=== PATIENT | female | born 1930 | race Caucasian/White ===

== ENCOUNTER → 2017-07-03 | Outpatient (CLI) | payer MEDICARE, OTHER ==
[2016-07-05 10:59] VITALS: BP 113/71
[~2017-07-03] MED LIST: AMLO10TA2 PO; ASPI325T11 PO; ATOR10TA60 PO; CEFP200T PO; CHOL10003 PO; GARL5000 PO; HYDR-79 PO; LEVO112T4 PO; LEVO500T59 PO; LISI-338 PO; METF10002 PO; MULT-658 PO; NITR100C62 PO; ONDA8TAB12 PO
--- NOTE | 2017-07-03 15:47 | RAD ---
Thyroid ultrasound 07/03/2017 Clinical indication: Multinodular thyroid. Comparison: Thyroid ultrasound 07/03/2016. Findings: Right lobe of the thyroid measures 5.7 x 2.6 x 2.4 cm. There are numerous probably hyperechoic nodules throughout the right lobe of the thyroid, many of which are ill-defined. Left lobe of the thyroid measures 4.3 x 2.3 x 2.2 cm with numerous ill-defined probably hyperechoic nodules.. The dominant nodule involving the mid and inferior aspect of the left lobe measures 2.1 x 2.6 x 1.8 cm. There is enlargement of the isthmus with numerous nodules. Impression: 1. Multinodular goiter. 2. Dominant left lobe nodule measures up to 2.1 cm, indeterminate. Follow-up thyroid ultrasound in 9 months is recommended.
== END | disposition home or self-care (01) ==
LOC: US 13:30
PROVIDERS: ATTEND Physician Assistant Medical
DX: E04.2 Nontoxic multinodular goiter (principal); Z87.891 Personal history of nicotine dependence
CPT/HCPCS: 76536

== ENCOUNTER 2018-06-30 01:28 | Inpatient (IN) | payer MEDICARE, OTHER ==
[~2018-06-30] VITALS: Ht 167.6 cm; Wt 112.5 kg
[2018-06-30] VITALS (7 sets, daily range): BP systolic 119–162; BP diastolic 49–80
[~2018-06-30 01:28] MED LIST changes: -AMLO10TA2 PO; +AMLO10TA6 PO; +HYDR-1179 PO; -HYDR-79 PO; -METF10002 PO; +METF10007 PO
--- NOTE | 2018-06-30 01:39 | ED.ADGEN ---
Past History Past Medical History: Diabetes, High Cholesterol, Hypertension, Hypothyroid, Other Past Surgical History: Other Smoking: Quit Greater Than 1 Year Alcohol Use: None Drug Use: None Adult General Chief Complaint Chief Complaint "..I ve been short of breath.. and hypertension...this been coming on for a while.... but worse the last three days..." HPI HPI Patient is a 88 year old female who presents with above hx and complaints of dyspnea and hypertension. Patient normally follows with Dr. Vee. Has been compliant with her hypertensive meds. Patient denies any other changes in diet or exposures. No specific ill contacts. Patient states she's been having increased dyspnea for some time now but more pronounced last 3 days. Pt. recently followed with [facility] ED on [address] for same complaints. No changes in medications at that time. Review of Systems Review of Systems Constitutional: Denies fever or chills [] Eyes: Denies change in visual acuity, redness, or eye pain [] HENT: Denies nasal congestion or sore throat [] Respiratory: Complaints of shortness of breath [] Cardiovascular: No additional information not addressed in HPI [] GI: Denies abdominal pain, nausea, vomiting, bloody stools or diarrhea [] : Denies dysuria or hematuria [] Musculoskeletal: Denies back pain or joint pain [] Integument: Denies rash or skin lesions [] Neurologic: Denies headache, focal weakness or sensory changes [] Endocrine: Denies polyuria or polydipsia [] All other systems were reviewed and found to be within normal limits, except as documented in this note. Family History Family History Noncontributory Current Medications Current Medications Current Medications Medications (Trade) Dose Ordered Sig/Clair Start Time Stop Time Status Last Admin Dose Admin Aspirin (Children'S Aspirin) 324 mg 1X ONCE 06/30/18 02:00 06/30/18 02:01 DC 06/30/18 02:19 324 MG Sodium Chloride 1,000 ml @ 100 mls/hr Q10H 06/30/18 02:00 06/30/18 11:59 06/30/18 02:21 100 MLS/HR Allergies Allergies Allergies Coded Allergies Type Severity Reaction Last Updated Verified demeclocycline Allergy Mild "SWELLS UP" 10/31/13 Yes Physical Exam Physical Exam Constitutional: mild distress, non-toxic appearance. [] HENT: Normocephalic, atraumatic, bilateral external ears normal, oropharynx moist, no oral exudates, nose normal. [](Dog jaw bone) Eyes: PERRLA, EOMI, conjunctiva normal, no discharge. [] Neck: Normal range of motion, no tenderness, supple, no stridor. [] Cardiovascular:Heart rate regular rhythm, no murmur [] Lungs & Thorax: Bilateral breath sounds equal apex with scattered wheezes and few crackles basilar on auscultation [] Abdomen: Bowel sounds normal, soft, no tenderness, no masses, no pulsatile masses. Obese Skin: Warm, dry, no erythema, no rash. Poor turgor Back: No tenderness, no CVA tenderness. [] Extremities: No tenderness, no cyanosis, no clubbing, ROM intact, bilateral ankle edema. [] Neurologic: Alert and oriented X 3, normal motor function, normal sensory function, no focal deficits noted. []Hard of hearing Psychologic: Affect anxious, judgement normal, mood normal. [] Current Patient Data Vital Signs Vital Signs Date Time Temp Pulse Resp B/P (MAP) Pulse Ox O2 Delivery O2 Flow Rate FiO2 06/30/18 03:15 89 18 196/85 (122) 97 Room Air 06/30/18 01:30 98.0 Lab Results Laboratory Tests Test 06/30/18 02:15 06/30/18 03:10 White Blood Count 4.9 x10^3/uL (4.0-11.0) Red Blood Count 3.70 x10^6/uL (3.50-5.40) Hemoglobin 12.0 g/dL (12.0-15.5) Hematocrit 36.1 % (36.0-47.0) Mean Corpuscular Volume 98 fL (79-100) Mean Corpuscular Hemoglobin 33 pg (25-35) Mean Corpuscular Hemoglobin Concent 33 g/dL (31-37) Red Cell Distribution Width 14.4 % (11.5-14.5) Platelet Count 129 x10^3/uL (140-400) L Neutrophils (%) (Auto) 66 % (31-73) Lymphocytes (%) (Auto) 21 % (24-48) L Monocytes (%) (Auto) 9 % (0-9) Eosinophils (%) (Auto) 4 % (0-3) H Basophils (%) (Auto) 1 % (0-3) Neutrophils # (Auto) 3.3 x10^3uL (1.8-7.7) Lymphocytes # (Auto) 1.0 x10^3/uL (1.0-4.8) Monocytes # (Auto) 0.4 x10^3/uL (0.0-1.1) Eosinophils # (Auto) 0.2 x10^3/uL (0.0-0.7) Basophils # (Auto) 0.0 x10^3/uL (0.0-0.2) Prothrombin Time 10.2 SEC (9.4-11.4) Prothrombin Time INR 1.0 (0.9-1.1) PTT 25 SEC (23-33) D-Dimer (Shanice) 1.25 mg/L (0.00-0.50) H Sodium Level 141 mmol/L (136-145) Potassium Level 3.9 mmol/L (3.5-5.1) Chloride Level 106 mmol/L (98-107) Carbon Dioxide Level 28 mmol/L (21-32) Anion Gap 7 (6-14) Blood Urea Nitrogen 18 mg/dL (7-20) Creatinine 0.8 mg/dL (0.6-1.0) Estimated GFR (Cockcroft-Gault) 68.0 Glucose Level 113 mg/dL (70-99) H Calcium Level 9.5 mg/dL (8.5-10.1) Magnesium Level 1.4 mg/dL (1.8-2.4) L Total Bilirubin 0.4 mg/dL (0.2-1.0) Direct Bilirubin 0.1 mg/dL (0.0-0.2) Aspartate Amino Transferase (AST) 13 U/L (15-37) L Alanine Aminotransferase (ALT) 14 U/L (14-59) Alkaline Phosphatase 63 U/L (46-116) Creatine Kinase 30 U/L (26-192) Creatine Kinase MB (Mass) 0.8 ng/mL (0.0-3.6) Creatine Kinase MB Relative Index 2.7 % (0-4) Troponin I Quantitative < 0.017 ng/mL (0-0.055) PD-Txt-H-Type Natriuretic Peptide 76 pg/mL (0-449) Total Protein 7.0 g/dL (6.4-8.2) Albumin 3.3 g/dL (3.4-5.0) L Lipase 115 U/L (73-393) Urine Collection Type Unknown Urine Color Yellow Urine Clarity Clear Urine pH 5.5 Urine Specific Dresher 1.015 Urine Protein Trace (NEG-TRACE) Urine Glucose (UA) Neg mg/dL (NEG) Urine Ketones (Stick) Neg mg/dL (NEG) Urine Blood Small (NEG) Urine Nitrite Neg (NEG) Urine Bilirubin Neg (NEG) Urine Urobilinogen Dipstick 0.2 mg/dL (0.2 mg/dL) Urine Leukocyte Esterase Small (NEG) Urine RBC Occ /HPF (0-2) Urine WBC 5-10 /HPF (0-4) Urine Squamous Epithelial Cells Occ /LPF Urine Bacteria Few /HPF (0-FEW) EKG EKG I interpretation EKG shows a sinus rhythm at 86 bpm. Does have occasional PVC. There is some nonspecific ST changes but no findings of acute STEMI with contralateral changes.[] Radiology/Procedures Radiology/Procedures My interpretation of chest x-ray shows cardiomegaly. Blunting a left clifton- phrenic angle. Degenerative joint changes. Increased cephalization. Arthritis.[] \\CT pending at time of admit. Course & Med Decision Making Course & Med Decision Making Pertinent Labs and Imaging studies reviewed. (See chart for details) No current beds at [facility]- will transfer to [facility] , . Dr. Clay accept pt in transfer to [facility] Advised pt. not to be transfer to [facility] be admitted to [facility] at 0630 Am per recent nursing meeting. ? Note pt. did not leave ED until 0730 hrs. US of legs pending at time of admit. [] Final Impression Final Impression 1. Dyspnea[] 2. Elevated D-dimer 1.25 3. Thrombocytopenia 129 4. Hypomagnesium 1.4 5. UTI 6. Rt. Lower Lung nodule 1.1 cm Dragon Disclaimer Dragon Disclaimer This electronic medical record was generated, in whole or in part, using a voice recognition dictation system. Dragon Disclaimer This chart was dictated in whole or in part using Voice Recognition software in a busy, high-work load, and often noisy Emergency Department environment. It may contain unintended and wholly unrecognized errors or omissions. Dragon Disclaimer This chart was dictated in whole or in part using Voice Recognition software in a busy, high-work load, and often noisy Emergency Department environment. It may contain unintended and wholly unrecognized errors or omissions. Discharge Summary Visit Information Final Diagnosis Problems Medical Problems: (1) Dyspnea Status: Acute Brief Hospital Course Allergies Allergies Coded Allergies Type Severity Reaction Last Updated Verified demeclocycline Allergy Mild "SWELLS UP" 10/31/13 Yes Vital Signs Vital Signs Date Time Temp Pulse Resp B/P (MAP) Pulse Ox O2 Delivery O2 Flow Rate FiO2 06/30/18 03:15 89 18 196/85 (122) 97 Room Air 06/30/18 01:30 98.0 Lab Results Laboratory Tests Test 06/30/18 02:15 06/30/18 03:10 White Blood Count 4.9 x10^3/uL (4.0-11.0) Red Blood Count 3.70 x10^6/uL (3.50-5.40) Hemoglobin 12.0 g/dL (12.0-15.5) Hematocrit 36.1 % (36.0-47.0) Mean Corpuscular Volume 98 fL (79-100) Mean Corpuscular Hemoglobin 33 pg (25-35) Mean Corpuscular Hemoglobin Concent 33 g/dL (31-37) Red Cell Distribution Width 14.4 % (11.5-14.5) Platelet Count 129 x10^3/uL (140-400) Neutrophils (%) (Auto) 66 % (31-73) Lymphocytes (%) (Auto) 21 % (24-48) Monocytes (%) (Auto) 9 % (0-9) Eosinophils (%) (Auto) 4 % (0-3) Basophils (%) (Auto) 1 % (0-3) Neutrophils # (Auto) 3.3 x10^3uL (1.8-7.7) Lymphocytes # (Auto) 1.0 x10^3/uL (1.0-4.8) Monocytes # (Auto) 0.4 x10^3/uL (0.0-1.1) Eosinophils # (Auto) 0.2 x10^3/uL (0.0-0.7) Basophils # (Auto) 0.0 x10^3/uL (0.0-0.2) Prothrombin Time 10.2 SEC (9.4-11.4) Prothromb Time International Ratio 1.0 (0.9-1.1) Activated Partial Thromboplast Time 25 SEC (23-33) D-Dimer (Shanice) 1.25 mg/L (0.00-0.50) Sodium Level 141 mmol/L (136-145) Potassium Level 3.9 mmol/L (3.5-5.1) Chloride Level 106 mmol/L (98-107) Carbon Dioxide Level 28 mmol/L (21-32) Anion Gap 7 (6-14) Blood Urea Nitrogen 18 mg/dL (7-20) Creatinine 0.8 mg/dL (0.6-1.0) Estimated GFR (Cockcroft-Gault) 68.0 Glucose Level 113 mg/dL (70-99) Calcium Level 9.5 mg/dL (8.5-10.1) Magnesium Level 1.4 mg/dL (1.8-2.4) Total Bilirubin 0.4 mg/dL (0.2-1.0) Direct Bilirubin 0.1 mg/dL (0.0-0.2) Aspartate Amino Transf (AST/SGOT) 13 U/L (15-37) Alanine Aminotransferase (ALT/SGPT) 14 U/L (14-59) Alkaline Phosphatase 63 U/L (46-116) Creatine Kinase 30 U/L (26-192) Creatine Kinase MB (Mass) 0.8 ng/mL (0.0-3.6) Creatine Kinase MB Relative Index 2.7 % (0-4) Troponin I Quantitative < 0.017 ng/mL (0-0.055) BV-Rfw-S-Type Natriuretic Peptide 76 pg/mL (0-449) Total Protein 7.0 g/dL (6.4-8.2) Albumin 3.3 g/dL (3.4-5.0) Lipase 115 U/L (73-393) Urine Collection Type Unknown Urine Color Yellow Urine Clarity Clear Urine pH 5.5 Urine Specific Dresher 1.015 Urine Protein Trace (NEG-TRACE) Urine Glucose (UA) Neg mg/dL (NEG) Urine Ketones (Stick) Neg mg/dL (NEG) Urine Blood Small (NEG) Urine Nitrite Neg (NEG) Urine Bilirubin Neg (NEG) Urine Urobilinogen Dipstick 0.2 mg/dL (0.2 mg/dL) Urine Leukocyte Esterase Small (NEG) Urine RBC Occ /HPF (0-2) Urine WBC 5-10 /HPF (0-4) Urine Squamous Epithelial Cells Occ /LPF Urine Bacteria Few /HPF (0-FEW) Brief Hospital Course Ms. Diggs is a 88 old female who presented with UTI, Dyspnea, Elev.D-dimer admitted to Dr. Clay Discharge Information Condition at Discharge: Improved, Stable Dischare Medications Current Medications Aspirin (Children'S Aspirin) 324 mg 1X ONCE PO Last administered on 06/30/18at 02:19; Admin Dose 324 MG; Start 06/30/18 at 02:00; Stop 06/30/18 at 02:01; Status DC Sodium Chloride 1,000 ml @ 100 mls/hr Q10H IV Last administered on 06/30/18at 02:21; Admin Dose 100 MLS/HR; Start 06/30/18 at 02:00; Stop 06/30/18 at 11:59 Active Scripts Active Cefpodoxime Proxetil 200 Mg Tablet 1 Tab PO BID Reported Centrum Silver Tablet (Multivits-Min/Fa/Lycopene/Lut) 1 Each Tablet 1 Each PO DAILY LAST DOSE GIVEN: DATE: TODAY TIME: AM NEXT DOSE DUE: DATE: TOMORROW TIME: AM Garlique (Garlic) 5,000 Mcg Tablet 5,000 Mcg PO DAILY LAST DOSE GIVEN: NOT GIVEN THIS ADMISSION NEXT DOSE DUE: DATE: TOMORROW TIME: AM DATE: TIME: Vitamin D3 (Cholecalciferol (Vitamin D3)) 1,000 Unit Tablet 2,000 Unit PO DAILY LAST DOSE GIVEN: DATE: TODAY TIME: AM NEXT DOSE DUE: DATE: TOMORROW TIME: AM Aspirin Ec (Aspirin) 325 Mg Tablet. 325 Mg PO DAILY08 LAST DOSE GIVEN: DATE: TODAY TIME: AM NEXT DOSE DUE: DATE: TOMORROW TIME: AM Levothyroxine Sodium 112 Mcg Tablet 112 Mcg PO DAILY06 LAST DOSE GIVEN: NOT GIVEN THIS ADMISSION NEXT DOSE DUE: DATE: TOMORROW TIME: AM Atorvastatin Calcium 10 Mg Tablet 10 Mg PO QHS LAST DOSE GIVEN: NOT GIVEN THIS ADMISSION NEXT DOSE DUE: DATE: TODAY TIME: AT BEDTIME Discharge Summary Visit Information Final Diagnosis Problems Medical Problems: (1) Dyspnea Status: Acute Brief Hospital Course Allergies Allergies Coded Allergies Type Severity Reaction Last Updated Verified demeclocycline Allergy Mild "SWELLS UP" 10/31/13 Yes Vital Signs Vital Signs Date Time Temp Pulse Resp B/P (MAP) Pulse Ox O2 Delivery O2 Flow Rate FiO2 06/30/18 03:15 89 18 196/85 (122) 97 Room Air 06/30/18 01:30 98.0 Lab Results Laboratory Tests Test 06/30/18 02:15 06/30/18 03:10 White Blood Count 4.9 x10^3/uL (4.0-11.0) Red Blood Count 3.70 x10^6/uL (3.50-5.40) Hemoglobin 12.0 g/dL (12.0-15.5) Hematocrit 36.1 % (36.0-47.0) Mean Corpuscular Volume 98 fL (79-100) Mean Corpuscular Hemoglobin 33 pg (25-35) Mean Corpuscular Hemoglobin Concent 33 g/dL (31-37) Red Cell Distribution Width 14.4 % (11.5-14.5) Platelet Count 129 x10^3/uL (140-400) Neutrophils (%) (Auto) 66 % (31-73) Lymphocytes (%) (Auto) 21 % (24-48) Monocytes (%) (Auto) 9 % (0-9) Eosinophils (%) (Auto) 4 % (0-3) Basophils (%) (Auto) 1 % (0-3) Neutrophils # (Auto) 3.3 x10^3uL (1.8-7.7) Lymphocytes # (Auto) 1.0 x10^3/uL (1.0-4.8) Monocytes # (Auto) 0.4 x10^3/uL (0.0-1.1) Eosinophils # (Auto) 0.2 x10^3/uL (0.0-0.7) Basophils # (Auto) 0.0 x10^3/uL (0.0-0.2) Prothrombin Time 10.2 SEC (9.4-11.4) Prothromb Time International Ratio 1.0 (0.9-1.1) Activated Partial Thromboplast Time 25 SEC (23-33) D-Dimer (Shanice) 1.25 mg/L (0.00-0.50) Sodium Level 141 mmol/L (136-145) Potassium Level 3.9 mmol/L (3.5-5.1) Chloride Level 106 mmol/L (98-107) Carbon Dioxide Level 28 mmol/L (21-32) Anion Gap 7 (6-14) Blood Urea Nitrogen 18 mg/dL (7-20) Creatinine 0.8 mg/dL (0.6-1.0) Estimated GFR (Cockcroft-Gault) 68.0 Glucose Level 113 mg/dL (70-99) Calcium Level 9.5 mg/dL (8.5-10.1) Magnesium Level 1.4 mg/dL (1.8-2.4) Total Bilirubin 0.4 mg/dL (0.2-1.0) Direct Bilirubin 0.1 mg/dL (0.0-0.2) Aspartate Amino Transf (AST/SGOT) 13 U/L (15-37) Alanine Aminotransferase (ALT/SGPT) 14 U/L (14-59) Alkaline Phosphatase 63 U/L (46-116) Creatine Kinase 30 U/L (26-192) Creatine Kinase MB (Mass) 0.8 ng/mL (0.0-3.6) Creatine Kinase MB Relative Index 2.7 % (0-4) Troponin I Quantitative < 0.017 ng/mL (0-0.055) PJ-Str-A-Type Natriuretic Peptide 76 pg/mL (0-449) Total Protein 7.0 g/dL (6.4-8.2) Albumin 3.3 g/dL (3.4-5.0) Lipase 115 U/L (73-393) Urine Collection Type Unknown Urine Color Yellow Urine Clarity Clear Urine pH 5.5 Urine Specific Dresher 1.015 Urine Protein Trace (NEG-TRACE) Urine Glucose (UA) Neg mg/dL (NEG) Urine Ketones (Stick) Neg mg/dL (NEG) Urine Blood Small (NEG) Urine Nitrite Neg (NEG) Urine Bilirubin Neg (NEG) Urine Urobilinogen Dipstick 0.2 mg/dL (0.2 mg/dL) Urine Leukocyte Esterase Small (NEG) Urine RBC Occ /HPF (0-2) Urine WBC 5-10 /HPF (0-4) Urine Squamous Epithelial Cells Occ /LPF Urine Bacteria Few /HPF (0-FEW) Brief Hospital Course Ms. Diggs is a 88 old [sex] who presented with [ ] Discharge Information Dischare Medications Current Medications Aspirin (Children'S Aspirin) 324 mg 1X ONCE PO Last administered on 06/30/18at 02:19; Admin Dose 324 MG; Start 06/30/18 at 02:00; Stop 06/30/18 at 02:01; Status DC Sodium Chloride 1,000 ml @ 100 mls/hr Q10H IV Last administered on 06/30/18at 02:21; Admin Dose 100 MLS/HR; Start 06/30/18 at 02:00; Stop 06/30/18 at 11:59 Active Scripts Active Cefpodoxime Proxetil 200 Mg Tablet 1 Tab PO BID Reported Centrum Silver Tablet (Multivits-Min/Fa/Lycopene/Lut) 1 Each Tablet 1 Each PO DAILY LAST DOSE GIVEN: DATE: TODAY TIME: AM NEXT DOSE DUE: DATE: TOMORROW TIME: AM Garlique (Garlic) 5,000 Mcg Tablet 5,000 Mcg PO DAILY LAST DOSE GIVEN: NOT GIVEN THIS ADMISSION NEXT DOSE DUE: DATE: TOMORROW TIME: AM DATE: TIME: Vitamin D3 (Cholecalciferol (Vitamin D3)) 1,000 Unit Tablet 2,000 Unit PO DAILY LAST DOSE GIVEN: DATE: TODAY TIME: AM NEXT DOSE DUE: DATE: TOMORROW TIME: AM Aspirin Ec (Aspirin) 325 Mg Tablet.dr 325 Mg PO DAILY08 LAST DOSE GIVEN: DATE: TODAY TIME: AM NEXT DOSE DUE: DATE: TOMORROW TIME: AM Levothyroxine Sodium 112 Mcg Tablet 112 Mcg PO DAILY06 LAST DOSE GIVEN: NOT GIVEN THIS ADMISSION NEXT DOSE DUE: DATE: TOMORROW TIME: AM Atorvastatin Calcium 10 Mg Tablet 10 Mg PO QHS LAST DOSE GIVEN: NOT GIVEN THIS ADMISSION NEXT DOSE DUE: DATE: TODAY TIME: AT BEDTIME JOSE MARIA ZAVALA MD Jun 30, 2018 01:39
--- NOTE | 2018-06-30 01:59 | EKG ---
[address] [address] Test Date: 2018-06-30 Test Time: 01:50:46 Pat Name: MORGAN ANDRADE Department: Room: Gender: F [employer] Supervisor: : [id number] Requested By: JOSE MARIA ZAVALA Order Number: [id number] Reading MD: Jesus Suarez Measurements Intervals [place] Rate: 86 P: 13 ME: 176 QRS: 25 QRSD: 98 T: 35 QT: 382 QTc: 460 Interpretive Statements SINUS RHYTHM ST & T ABNORMALITY, CONSIDER ANTERIOR ISCHEMIA OR LEFT VENTRICULAR STRAIN T ABNORMALITY IN INFEROLATERAL LEADS ABNORMAL ECG Electronically Signed On 07-08-2018 17:15:19 COMMUNITY SERVICE TECHNICIAN by Jesus Suarez
[2018-06-30] MEDS ORDERED: IV NORMAL SALINE 1,000ML 1,000 ML IV SCH (02:00)
[2018-06-30] MEDS ORDERED: ASPIRIN 81 MG TAB.CHEW PO ONE (02:00)
[2018-06-30 02:45] LABS: BASO % 1 % (0-3); EOS # 0.2 x10^3/uL (0.0-0.7); EOS % 4 % (0-3); HEMATOCRIT 36.1 % (36.0-47.0); LYMPH % 21 % (24-48); MEAN CORPUSCULAR HEMOGLOBIN 33 pg (25-35); MEAN CORPUSCULAR HGB CONC 33 g/dL (31-37); MEAN CORPUSCULAR VOLUME 98 fL (79-100); MONO # 0.4 x10^3/uL (0.0-1.1); MONO % 9 % (0-9); NEUT # 3.3 x10^3uL (1.8-7.7); NEUT % 66 % (31-73); PLATELET COUNT 129 x10^3/uL (140-400); RED CELL DISTRIBUTION WIDTH 14.4 % (11.5-14.5); WHITE BLOOD COUNT 4.9 x10^3/uL (4.0-11.0)
[2018-06-30 03:08] LABS: ALBUMIN 3.3 g/dL (3.4-5.0); CALCIUM 9.5 mg/dL (8.5-10.1); CREATININE 0.8 mg/dL (0.6-1.0); DIRECT BILIRUBIN 0.1 mg/dL (0.0-0.2); MAGNESIUM 1.4 mg/dL (1.8-2.4); POTASSIUM 3.9 mmol/L (3.5-5.1); TOTAL BILIRUBIN 0.4 mg/dL (0.2-1.0)
[2018-06-30 03:39] LABS: BILIRUBIN,URINE NEG (NEG); CLARITY,URINE CLEAR; COLOR,URINE YELLOW; GLUCOSE,URINE NEG (NEG)
[2018-06-30 03:40] LABS: BACTERIA,URINE FEW /HPF (0-FEW); NITRITE,URINE NEG (NEG); RBC,URINE OCC /HPF (0-2); SQUAMOUS EPITHELIAL CELL,UR OCC /LPF; UROBILINOGEN,URINE 0.2 mg/dL (0.2 mg/dL)
[2018-06-30] MEDS ORDERED: CONTRAST GIVEN MC PRN (03:45)
[2018-06-30] MEDS ORDERED: MAGNESIUM SULFATE 2GM 50 ML IV ONE (04:00)
[2018-06-30] MEDS ORDERED: ONDANSETRON PF 4 MG/2 ML VIAL. IV PRN ×2 (04:00→08:30)
[2018-06-30] MEDS ORDERED: cefTRIAXone SODIUM 1 GM VIAL IV ONE (04:00)
[2018-06-30] MEDS ORDERED: IV NORMAL SALINE 50ML 50 ML ONE (04:00)
[2018-06-30] MEDS ORDERED: IOHEXOL 350 MG/ML 100 ML VIAL. IV ONE (04:00)
--- NOTE | 2018-06-30 04:20 | RAD ---
Examination: CT angiography chest HISTORY: History of shortness of breath, elevated d-dimer COMPARISON: 07/03/2016 TECHNIQUE: Axial CT angiographic images of chest were performed with IV contrast. Coronal and sagittal 3-D MIP reformats are performed Exposure: One or more of the following individualized dose reduction techniques were utilized for this examination: 1. Automated exposure control 2. Adjustment of the mA and/or kV according to patient size 3. Use of iterative reconstruction technique FINDINGS: Enlarged appearing left lobe of the thyroid gland extending into the retrosternal similar to prior exam. There is a nodule identified in the left lower thyroid gland similar to prior exam. Mild cardiomegaly. Diffuse coronary artery calcifications. The caliber of the aorta grossly appears unremarkable. Moderate aortic atherosclerosis. There is no evidence of filling defect identified in the main pulmonary arterial trunk and right and left main pulmonary arteries and the visualized lobar, segmental branches of the pulmonary arteries. Mild emphysematous changes identified in the bilateral lungs. There is a new 1.1 cm nodule identified in the right lower lobe of the lung. Minimal atelectasis left lingula of the lung. The visualized liver, spleen, adrenals grossly appears unremarkable. Moderate aortic atherosclerosis. Moderate degenerative changes thoracic spine. IMPRESSION: 1. No evidence of pulmonary embolism. 2. New 1.1 cm nodule identified in the right lower lobe of the lung. Recommend follow-up PET/CT scan for further evaluation. 3. 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 Left thyroid nodule similar to prior exam. Electronically signed by: Huseyin Wright MD (06/30/2018 4:16 AM) [facility]
[2018-06-30] MEDS ORDERED: ANTI-COAG MONITOR BY PHARMACY. MC PRN (04:30)
[2018-06-30] MEDS ORDERED: ENOXAPARIN ** NOTE DOSE ** SYRINGE SQ SCH (04:30)
[2018-06-30] MEDS ORDERED: ACETAMINOPHEN 500 MG TABLET PO ONE ×2 (04:52→05:00)
[2018-06-30 05:01] LABS: INFLUENZA A PATIENT NEGATIVE (NEGATIVE); INFLUENZA B PATIENT NEGATIVE (NEGATIVE)
--- NOTE | 2018-06-30 07:48 | RAD ---
Chest radiograph 06/30/2018 1:40 AM INDICATION: Dyspnea COMPARISON: Chest radiograph July 03, 2016 TECHNIQUE: Frontal view of the chest is provided. FINDINGS: The cardiomediastinal silhouette is within normal limits. There are no pleural effusions. There is no pulmonary vascular congestion. There is no pneumothorax. The lungs are clear. Left diaphragmatic hernia is noted. No significant osseous abnormality is identified. IMPRESSION: No acute cardiopulmonary process. Electronically signed by: Lizzette Guo MD (06/30/2018 7:43 AM) [facility]
[2018-06-30] MEDS: IPRATRPIUM/ALBUTEROL 0.5/2.5MG 3 ML NEBU. NEB SCH ×2 (08:00→09:25)
[2018-06-30] MEDS ORDERED: LISI2.5T PO (08:34)
[2018-06-30] MEDS: ASPIRIN 325 MG TABLET ONE ×2 (08:35→08:38)
[2018-06-30] MEDS ORDERED: LISINOPRIL 2.5 MG TABLET ONE (08:35)
[2018-06-30] MEDS: LEVOTHYROXINE 112 MCG TABLET PO SCH ×2 (08:38→10:00)
[2018-06-30] MEDS ORDERED: LISINOPRIL 2.5 MG TABLET PO SCH (09:00)
[2018-06-30] MEDS ORDERED: ASPIRIN 81 MG TAB.CHEW PO SCH (09:00)
[2018-06-30] MEDS ORDERED: IPRATRPIUM/ALBUTEROL 0.5/2.5MG 3 ML NEBU. NEB PRN (09:30)
--- NOTE | 2018-06-30 09:43 | PDOC2 ---
NOHEMY MAGANA CORPORATE SALES REPRESENTATIVE 06/30/18 0943: CONSULT Date of Admission DATE: 06/30/18 TIME: 09:39 Reason for Consult: cp Problem List Problems Medical Problems: (1) Dyspnea Status: Acute History of Present Illness Ms Diggs is an 88 year old female previously followed by Dr Hebert. She has a history of remote cardiac cath, reportedly normal, and a recent evaluation for chest pain including an echo which revealed normal LV function and wall motion, as well as an MPI which revealed normal perfusion, completed in October of 2017. She has additional history of hypertension, hyperlipidemia and diabetes mellitus. She presents with complaints of high blood pressure and dyspnea on exertion. She reports that she has had progressive dyspnea on exertion for about 6 months. She initially was becoming short of breath walking to her garage up an incline about 50 ft and yesterday she found she was short of breath with walking to her bathroom. She denies congestive symptoms or edema. He daughter, who is present at bedside, reports that she has noticed her mother being significantly more fatigued and more easily out of breath to include looking short of breath with just talking. She has had a non productive cough recently. She denies any fever or chills. She reports that she has been seen on a couple of occasions for significant elevation of her blood pressure which is not normal for her. She denies any chest discomfort, palpitations, lightheadedness or syncope. She reports declining functional capacity as described above and complains of chronic fatigue. Past Medical History cataracts Cardiovascular: HTN, hyperipidemia, valve insufficiency GI: GERD Musculoskeletal: Osteoarthritis, Other (degenerative disc disease) Renal/: UTI Endocrine: Diabetes, Hypothyroidism Past Surgical History: Arthroscopy (bilateral knees) Family History: Cancer, Coronary Artery Disease, Hypothyroidism Social History remote smoking history, no significant ETOH, no illicit drugs Current Medications Current Medications Aspirin (Children'S Aspirin) 324 mg 1X ONCE PO Last administered on 06/30/18at 02:19; Start 06/30/18 at 02:00; Stop 06/30/18 at 02:01; Status DC Sodium Chloride 1,000 ml @ 100 mls/hr Q10H IV Last administered on 06/30/18at 02:21; Start 06/30/18 at 02:00; Stop 06/30/18 at 11:59 Magnesium Sulfate 50 ml @ 25 mls/hr 1X ONCE IV Last administered on 06/30/18at 04:47; Start 06/30/18 at 04:00; Stop 06/30/18 at 05:59; Status DC Iohexol (Omnipaque 350 Mg/ml) 100 ml 1X ONCE IV Last administered on at 03:45; Start 06/30/18 at 04:00; Stop 06/30/18 at 04:01; Status DC Info (Do NOT chart on this entry -- for MONITORING) 1 each PRN DAILY PRN MC SEE COMMENTS; Start 06/30/18 at 03:45; Stop 07/02/18 at 03:44 Ceftriaxone Sodium 1 gm/ Sodium Chloride 50 ml @ 100 mls/hr 1X ONCE IV Last administered on 06/30/18at 04:08; Start 06/30/18 at 04:00; Stop 06/30/18 at 04:29 ; Status DC Sodium Chloride 50 ml @ As Directed STK-MED ONCE .ROUTE ; Start 06/30/18 at 04: 00; Stop 06/30/18 at 04:02; Status DC Ceftriaxone Sodium (Rocephin) 1 gm STK-MED ONCE IV ; Start 06/30/18 at 04:00; Stop 06/30/18 at 04:02; Status DC Ondansetron HCl (Zofran) 4 mg PRN Q4HRS PRN IV NAUSEA/VOMITING; Start 06/30/18 at 04:00; Stop 06/30/18 at 08:42; Status DC Albuterol/ Ipratropium (Duoneb) 3 ml RTQID NEB ; Start 06/30/18 at 08:00; Stop 06/30/18 at 09:26; Status DC Enoxaparin Sodium (Lovenox 120mg Syringe) 110 mg Q12HR SQ ; Start 06/30/18 at 04 :30; Stop 06/30/18 at 04:30; Status DC Ceftriaxone Sodium 1 gm/ Sodium Chloride 50 ml @ 100 mls/hr QHS IV ; Start at 21:00 Aspirin (Children'S Aspirin) 81 mg DAILY PO ; Start 06/30/18 at 09:00; Stop at 09:00; Status DC Enoxaparin Sodium (Lovenox 100mg Syringe) 100 mg Q12HR SQ ; Start 06/30/18 at 04 :30 Info (Anti-Coagulation Monitoring By Pharmacy) 1 each PRN DAILY PRN MC SEE COMMENTS; Start 06/30/18 at 04:30; Status Cancel Acetaminophen (Tylenol) 500 mg STK-MED ONCE PO ; Start 06/30/18 at 04:52; Stop 06/30/18 at 04:53; Status DC Acetaminophen (Tylenol) 1,000 mg 1X ONCE PO Last administered on 06/30/18at 05: 01; Start 06/30/18 at 05:00; Stop 06/30/18 at 05:01; Status DC Levothyroxine Sodium (Synthroid) 112 mcg DAILY06 PO Last administered on at 08:38; Start 06/30/18 at 08:00 Ondansetron HCl (Zofran) 4 mg PRN Q8HRS PRN IV NAUSEA/VOMITING; Start 06/30/18 at 08:30 Aspirin (Aspirin Enteric Coated) 325 mg DAILY08 PO ; Start 07/01/18 at 08:00 Levothyroxine Sodium (Synthroid) 112 mcg DAILY06 PO ; Start 07/01/18 at 06:00; Status Cancel Atorvastatin Calcium (Lipitor) 10 mg QHS PO ; Start 06/30/18 at 21:00 Lisinopril (Prinivil) 2.5 mg DAILY PO ; Start 06/30/18 at 09:00 Aspirin (Ally Aspirin) 325 mg STK-MED ONCE .ROUTE Last administered on at 08:38; Start 06/30/18 at 08:35; Stop 06/30/18 at 08:37; Status DC Lisinopril (Prinivil) 2.5 mg STK-MED ONCE .ROUTE Last administered on at 08:39; Start 06/30/18 at 08:35; Stop 06/30/18 at 08:37; Status DC Albuterol/ Ipratropium (Duoneb) 3 ml RTQID PRN NEB SHORTNESS OF BREATH; Start 06/30/18 at 09:30 Active Scripts Active Cefpodoxime Proxetil 200 Mg Tablet 1 Tab PO BID Reported Lisinopril 2.5 Mg Tablet 1 Tab PO DAILY Centrum Silver Tablet (Multivits-Min/Fa/Lycopene/Lut) 1 Each Tablet 1 Each PO DAILY LAST DOSE GIVEN: DATE: TODAY TIME: AM NEXT DOSE DUE: DATE: TOMORROW TIME: AM Garlique (Garlic) 5,000 Mcg Tablet 5,000 Mcg PO DAILY LAST DOSE GIVEN: NOT GIVEN THIS ADMISSION NEXT DOSE DUE: DATE: TOMORROW TIME: AM DATE: TIME: Vitamin D3 (Cholecalciferol (Vitamin D3)) 1,000 Unit Tablet 2,000 Unit PO DAILY LAST DOSE GIVEN: DATE: TIME: AM NEXT DOSE DUE: DATE: TOMORROW TIME: AM Aspirin Ec (Aspirin) 325 Mg Tablet.dr 325 Mg PO DAILY08 LAST DOSE GIVEN: DATE: TODAY TIME: AM NEXT DOSE DUE: DATE: ORR TIME: AM Levothyroxine Sodium 112 Mcg Tablet 112 Mcg PO DAILY06 LAST DOSE GIVEN: NOT GIVEN THIS ADMISSION NEXT DOSE DUE: DATE: ORR TIME: AM Atorvastatin Calcium 10 Mg Tablet 10 Mg PO QHS LAST DOSE GIVEN: NOT GIVEN THIS ADMISSION NEXT DOSE DUE: DATE: TODAY TIME: AT BEDTIME Allergies: Coded Allergies: demeclocycline (Verified Allergy, Mild, "SWELLS UP", 10/31/13) Review of System as per HPI or negative General: Alert, Oriented X3, Cooperative, No acute distress, Other (hard of hearing) HEENT: Atraumatic, EOMI, Mucous membr. moist/pink Lungs: Other (decreased lung sounds without crackles, rhonchi or wheezing) Heart: Regular rate, Normal S1, Normal S2, Other (+ 2/6 systolic murmur, no gallops, clicks or rubs) Abdomen: Normal bowel sounds, Soft, No tenderness Extremities: No clubbing, No cyanosis, Other (non pitting edema) Neuro: Normal speech, Strength at 5/5 X4 ext Psych/Mental Status: Mental status NL, Mood NL VITALS Vital Signs Date Time Temp Pulse Resp B/P (MAP) Pulse Ox O2 Delivery O2 Flow Rate FiO2 06/30/18 08:39 88 06/30/18 05:15 16 159/84 (109) 96 Room Air 06/30/18 01:30 98.0 Labs Laboratory Tests Test 06/30/18 02:15 06/30/18 03:10 06/30/18 04:10 White Blood Count 4.9 x10^3/uL (4.0-11.0) Red Blood Count 3.70 x10^6/uL (3.50-5.40) Hemoglobin 12.0 g/dL (12.0-15.5) Hematocrit 36.1 % (36.0-47.0) Mean Corpuscular Volume 98 fL (79-100) Mean Corpuscular Hemoglobin 33 pg (25-35) Mean Corpuscular Hemoglobin Concent 33 g/dL (31-37) Red Cell Distribution Width 14.4 % (11.5-14.5) Platelet Count 129 x10^3/uL (140-400) Neutrophils (%) (Auto) 66 % (31-73) Lymphocytes (%) (Auto) 21 % (24-48) Monocytes (%) (Auto) 9 % (0-9) Eosinophils (%) (Auto) 4 % (0-3) Basophils (%) (Auto) 1 % (0-3) Neutrophils # (Auto) 3.3 x10^3uL (1.8-7.7) Lymphocytes # (Auto) 1.0 x10^3/uL (1.0-4.8) Monocytes # (Auto) 0.4 x10^3/uL (0.0-1.1) Eosinophils # (Auto) 0.2 x10^3/uL (0.0-0.7) Basophils # (Auto) 0.0 x10^3/uL (0.0-0.2) Prothrombin Time 10.2 SEC (9.4-11.4) Prothromb Time International Ratio 1.0 (0.9-1.1) Activated Partial Thromboplast Time 25 SEC (23-33) D-Dimer (Shanice) 1.25 mg/L (0.00-0.50) Sodium Level 141 mmol/L (136-145) Potassium Level 3.9 mmol/L (3.5-5.1) Chloride Level 106 mmol/L (98-107) Carbon Dioxide Level 28 mmol/L (21-32) Anion Gap 7 (6-14) Blood Urea Nitrogen 18 mg/dL (7-20) Creatinine 0.8 mg/dL (0.6-1.0) Estimated GFR (Cockcroft-Gault) 68.0 Glucose Level 113 mg/dL (70-99) Calcium Level 9.5 mg/dL (8.5-10.1) Magnesium Level 1.4 mg/dL (1.8-2.4) Total Bilirubin 0.4 mg/dL (0.2-1.0) Direct Bilirubin 0.1 mg/dL (0.0-0.2) Aspartate Amino Transf (AST/SGOT) 13 U/L (15-37) Alanine Aminotransferase (ALT/SGPT) 14 U/L (14-59) Alkaline Phosphatase 63 U/L (46-116) Creatine Kinase 30 U/L (26-192) Creatine Kinase MB (Mass) 0.8 ng/mL (0.0-3.6) Creatine Kinase MB Relative Index 2.7 % (0-4) Troponin I Quantitative < 0.017 ng/mL (0-0.055) AP-Han-C-Type Natriuretic Peptide 76 pg/mL (0-449) Total Protein 7.0 g/dL (6.4-8.2) Albumin 3.3 g/dL (3.4-5.0) Lipase 115 U/L (73-393) Urine Collection Type Unknown Urine Color Yellow Urine Clarity Clear Urine pH 5.5 Urine Specific Quinton 1.015 Urine Protein Trace (NEG-TRACE) Urine Glucose (UA) Neg mg/dL (NEG) Urine Ketones (Stick) Neg mg/dL (NEG) Urine Blood Small (NEG) Urine Nitrite Neg (NEG) Urine Bilirubin Neg (NEG) Urine Urobilinogen Dipstick 0.2 mg/dL (0.2 mg/dL) Urine Leukocyte Esterase Small (NEG) Urine RBC Occ /HPF (0-2) Urine WBC 5-10 /HPF (0-4) Urine Squamous Epithelial Cells Occ /LPF Urine Bacteria Few /HPF (0-FEW) Influenza Type A (Rapid) Negative (NEGATIVE) Influenza Type B (Rapid) Negative (NEGATIVE) Images EKG - sinus rhythm, nonspecific changes CTA - 1. No evidence of pulmonary embolism. 2. New 1.1 cm nodule identified in the right lower lobe of the lung. Recommend follow-up PET/CT scan for further evaluation. 3. 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 Left thyroid nodule similar to prior exam. CXR - IMPRESSION: No acute cardiopulmonary process. Assessment/Plan 1. Dyspnea on exertion 2. episodic accelerated hypertension 3. hyperlipidemia 4. diabetes mellitus - last A1C 5.1 Doubt ACS with normal perfusion by MPI in the last 6 months. Initial enzymes normal. No acute ischemic changes on EKG, left bundle not new. No overt heart failure. Suggest limited echo for LVEF, wall motion and MR as full echo done in October. If Hali remain normal and no significant changes in echo would suggest 6 min walk, outpatient event monitoring and PFTs. Outpatient follow up and could consider cath if testing fails to reveal any pathology to explain symptoms. HONORIO DIAZ MD 06/30/18 1623: CONSULT Assessment/Plan Patient seen and examined. Agree with VERSE WRITER's assessment and plan. Clinical picture not consistent with congestive heart failure Titrate antihypertensives for better blood pressure control 2-D echo showed normal LV systolic function without any wall motion abnormalities We will obtain records of recent MPI that apparently was normal If symptoms continue or worsen, we will consider cardiac catheterization as an outpatient Thank you for your consultation NOHEMY MAGANA APRN Jun 30, 2018 09:43 HONORIO DIAZ MD Jun 30, 2018 16:23
[2018-06-30] MEDS ORDERED: METF500T16 PO (10:29)
[2018-06-30] MEDS: ENOXAPARIN ** NOTE DOSE ** SYRINGE SQ SCH ×2 (12:06→21:00)
[2018-06-30 13:26] LABS: THYROID STIM HORMONE (TSH) 1.99 uIU/mL (0.358-3.740)
--- NOTE | 2018-06-30 15:37 | CARD ---
MR#: [id number] Date of Study: 06/30/2018 Ordering Physician: NOHEMY MAGANA, Referring Physician: DEIRDRE MCKEON Tech: Patricia Troy RDCS APPROVED REPORT EXAM: LIMITED Two-dimensional echocardiogram Other Information Quality : Good INDICATION LV Function:Systolic Mitral Valve Disease 2D DIMENSIONS Left Atrium(2D)3.4 (1.6-4.0cm)IVSd0.9 (0.7-1.1cm) Aortic Root(2D)2.1 (2.0-3.7cm)LVDd5.3 (3.9-5.9cm) PWd0.9 (0.7-1.1cm)LVDs3.6 (2.5-4.0cm) FS (%) 32.5 %SV80.7 ml LVEF(%)60.4 (>50%) LEFT VENTRICLE The left ventricle is normal size. There is normal left ventricular wall thickness. The left ventricu lar systolic function is normal and the ejection fraction is within normal range. The Ejection Fracti on is 55-60%. There is normal LV segmental wall motion. Transmitral Doppler flow pattern is Grade I-a bnormal relaxation pattern. RIGHT VENTRICLE The right ventricle is normal size. The right ventricular systolic function is normal. ATRIA The left atrium size is normal. The right atrium size is normal. The interatrial septum is intact wit h no evidence for an atrial septal defect or patent foramen ovale as noted on 2-D or Doppler imaging. MITRAL VALVE The mitral valve is calcified but opens well. Posterior mitral annular calcification is severe. There is no evidence of mitral valve prolapse. There is no mitral valve stenosis. Doppler and Color-flow r evealed mild mitral regurgitation. GREAT VESSELS The aortic root is normal in size. PERICARDIAL EFFUSION There is no evidence of significant pericardial effusion. Critical Notification Critical Value: No <Conclusion> The left ventricular systolic function is normal and the ejection fraction is within normal range. Th e Ejection Fraction is 55-60%. There is normal LV segmental wall motion. The mitral valve is calcified but opens well. Posterior mitral annular calcification is severe. Doppler and Color-flow revealed mild mitral regurgitation. Limited echo only. Signed by : Leo Bowden, Electronically Approved : 06/30/2018 15:35:16
--- NOTE | 2018-06-30 17:19 | HP ---
ADMIT DATE: 06/30/2018 HISTORY OF PRESENT ILLNESS: The patient is an 88-year-old female patient who basically came to the Emergency Room complaining of shortness of breath and hypertension. The patient normally follows with ____ has been compliant with her antihypertensive medications. Denied any other changes in her diet or exposure. No specific eye contact. The patient has been having increased dyspnea for some time now, but more pronounced for the last 3 days. She recently followed at [facility] for same complaints. There were no changes in her medication. She was extensively investigated in the Emergency Room and her EKG was found to be in sinus rhythm at 86 beats per minute with occasional PVCs. No ST segment elevation or depression. Her D-dimer was elevated and she was found also to have thrombocytopenia, hypomagnesemia. Her magnesium was replenished. She has had a CT angio of the chest, which basically showed that she has mild cardiomegaly, diffuse coronary artery calcification. The caliber of the aorta grossly appears unremarkable with no evidence of pulmonary embolism, enlarged appearing thyroid gland with retrosternal extension on the left thyroid nodule similar to prior exam and was admitted for further evaluation to consult the Cardiology team. PAST MEDICAL HISTORY: Significant for hypertension, hyperlipidemia, hypothyroidism and osteoarthritis. PAST SURGICAL HISTORY: Significant for left heart catheterization, arthroscopic surgery and bilateral cataract extraction. ALLERGIES: She is allergic to DEMECLOCYCLINE. MEDICATIONS: She is currently on following medications: She is on cefpodoxime 200 mg twice a day, atorvastatin calcium 10 mg at bedtime, lisinopril 2.5 mg daily, aspirin 325 mg daily, metformin 500 mg daily, levothyroxine sodium 112 mcg once a day, cholecalciferol for vitamin D3 2000 international units once a day, multivitamin with mineral 1 tablet once a day, garlic 5000 mcg tablet once a day. FAMILY HISTORY: She has one sister living in [place], two sisters , one of lung cancer, one of pancreatic cancer. Both brothers of myocardial infarction. Her father at age of 72 and was killed in a tractor accident. Mother because of myocardial infarction. SOCIAL HISTORY: She is . Her daughter lives with her. She smoked cigarettes, started at the age of 17 and quit at age of 37. She does not drink alcohol or use recreational drugs. She has 3 daughters and 2 sons. 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 REVIEW OF SYSTEMS: She has bilateral cataract extraction, but denied any glaucoma or macular degeneration. Denied any earache, tinnitus, or sensorineural deafness. Denied any nosebleeds, stuffy nose or postnasal drip. Denied any sore throat, sore tongue, toothache, hoarseness of voice or difficulty swallowing. Denied any nausea, vomiting, diarrhea or constipation. Denied any hematemesis, melena or hematochezia. Denied any dysuria, frequency or hematuria. Denied any chest pain. Did complain of shortness of breath. Denied any orthopnea or paroxysmal nocturnal dyspnea. Denied any cough, phlegm or hemoptysis. Denied any chills, rigors, or fever. PHYSICAL EXAMINATION: GENERAL: On arrival to the Emergency Room, she looked well and was clearly in no apparent respiratory distress. No pallor, jaundice, cyanosis, or thyromegaly. No jugular venous distension. No limb edema. VITAL SIGNS: Her heart rate was 95, blood pressure was 185/85, temperature 98, respiratory rate was 23, and oxygen saturation was 98% on room air. HEAD, EYES, EARS, NOSE AND THROAT: Showed normocephalic, atraumatic. NECK: Supple. HEART: Showed normal first and second sounds. No gallop, rub or murmur. CHEST: Clear to auscultation. No crepitation or rhonchi. ABDOMEN: Distended, soft, and nontender. NEUROLOGIC: She is awake, alert. All her cranial nerves intact. EXTREMITIES: She moves extremities without difficulty. She does ambulate with a walker. LABORATORY DATA: On arrival showed a white cell count of 4900, hemoglobin 12, hematocrit 36, MCV 98 and platelet count of 129,000 with normal manual differential. Her chemistry showed a serum sodium 141, potassium 3.9, chloride 106, bicarbonate 28, anion gap of 7, BUN 18, creatinine 0.8, estimated GFR was 68 mL per minute. Her glucose was 113, calcium was 9.5, magnesium was 1.4. Total bilirubin, AST, ALT, alkaline phosphatase were normal. Total protein was 7, albumin 3.3. Her serum lipase 115. TSH was normal at 1.990. Her serum triglycerides were 69, total cholesterol 57, LDL was 79, VLDL 13, and HDL cholesterol was 65, the ratio was 2. Her prothrombin time 10.2, INR of 1, aPTT was 25. D-dimer is 1.25. Urinalysis showed the urine was yellow, clear with a pH of 5.5, specific gravity of 1.015. There was a trace of protein, negative for glucose, ketones, small amount of blood, negative for nitrite and small amount of leukocyte esterase, 5-10 wbc's, very few bacteria. Her influenza A and B were negative. DIAGNOSTIC DATA: She apparently has had a chest x-ray, which showed that the cardiomediastinal silhouette is within normal limits. There is no pleural effusion. There is no pulmonary vascular congestion. There is no pneumothorax. The lungs are clear. Left diaphragm hernia is noted. No significant osseous abnormalities identified. Her CT angio of the chest showed that there is no evidence of pulmonary embolism. There is new 1.1 cm nodule identified in the right lobe of the lung. I recommended followup PET/CT scan for further evaluation, enlarged appearing thyroid gland with retrosternal extension on the left thyroid nodule similar to prior exam. PLAN: Do 2 more sets of cardiac enzyme. Consult the Cardiology team and decide on further management accordingly. It transpired that she has had an echo done and stress test about 6 months ago done at [place] and she has had cardiac catheterization done 25 years ago and again 15 years ago. DEIRDRE MCKEON MD DR: PENELOPE/ricardo JOB#: [id number] / [id number]
--- NOTE | 2018-06-30 18:09 | RAD ---
Examination: VENOUS LOWER EXT BILATERAL History: Edema, elevated d-dimer Comparison/Correlation: None Findings: Bilateral lower extremity venous duplex ultrasound exam was performed. Color Doppler, spectral Doppler, and grayscale imaging was performed. Common femoral vein, superficial femoral vein, popliteal vein, visualized calf veins, and greater saphenous veins bilaterally are unremarkable with no thrombus. Normal compressibility and phasicity. Impression: No lower extremity DVT. Electronically signed by: Kevon Ace MD (06/30/2018 6:05 PM) [facility]
[2018-06-30] MEDS ORDERED: ACETAMINOPHEN 500 MG TABLET PO PRN (18:45)
[2018-06-30] MEDS: ALPRAZolam 0.25 MG TABLET PO SCH (19:48)
[2018-06-30] MEDS: LACTOBACILLUS RHAMNOSUS GG 1 CAPSULE. PO SCH (19:48)
[2018-06-30] MEDS ORDERED: ATORVASTATIN CALCIUM 10 MG TABLET. PO SCH (21:00)
[2018-07-01 05:30] VITALS: BP 114/52
[2018-07-01] MEDS: LEVOTHYROXINE 112 MCG TABLET PO SCH (05:32)
[2018-07-01] MEDS ORDERED: LEVOTHYROXINE 112 MCG TABLET PO SCH (06:00)
[2018-07-01 07:22] LABS: BASO % 1 % (0-3); EOS # 0.2 x10^3/uL (0.0-0.7); EOS % 6 % (0-3); HEMATOCRIT 33.1 % (36.0-47.0); HEMOGLOBIN 11.2 g/dL (12.0-15.5); LYMPH # 1.3 x10^3/uL (1.0-4.8); LYMPH % 33 % (24-48); MEAN CORPUSCULAR HEMOGLOBIN 33 pg (25-35); MEAN CORPUSCULAR HGB CONC 34 g/dL (31-37); MEAN CORPUSCULAR VOLUME 98 fL (79-100); MONO # 0.4 x10^3/uL (0.0-1.1); MONO % 10 % (0-9); NEUT % 51 % (31-73); PLATELET COUNT 112 x10^3/uL (140-400); RED BLOOD COUNT 3.38 x10^6/uL (3.50-5.40); RED CELL DISTRIBUTION WIDTH 14.6 % (11.5-14.5); WHITE BLOOD COUNT 3.9 x10^3/uL (4.0-11.0)
[2018-07-01 07:23] LABS: CALCIUM 8.9 mg/dL (8.5-10.1); CREATININE 0.8 mg/dL (0.6-1.0)
[2018-07-01] MEDS ORDERED: ASPIRIN ENTERIC COATED 325 MG TABLET.DR. PO SCH (08:00)
[2018-07-01] MEDS: LACTOBACILLUS RHAMNOSUS GG 1 CAPSULE. PO SCH (08:28)
[2018-07-01] MEDS ORDERED: ENOXAPARIN 40 MG/0.4 ML SYRINGE. SQ SCH (09:00)
[2018-07-01] MEDS ORDERED: LISINOPRIL 2.5 MG TABLET PO SCH (09:00)
--- NOTE | 2018-07-01 09:59 | PDOC ---
PROGRESS NOTES Diagnosis Problem Problems Medical Problems: (1) Dyspnea Status: Acute Assessment Problems Medical Problems: (1) Dyspnea Status: Acute 1. Dyspnea on exertion - stable. Plan for outpatient PFTs. If no significant abn, then outpatient follow up and consider further ischemic evaluation. 2. episodic accelerated hypertension - pressure controlled currently. ? component of anxiety. better control since start of Xanax. 3. hyperlipidemia - continue statin 4. diabetes mellitus - last A1C 5.1 Doubt ACS with recent normal perfusion by MPI. CE negative. No acute ischemic changes on EKG, left bundle not new. No overt heart failure. limited echo with normal EF and wall motion, MR now mild. Suggest 6 min walk, outpatient event monitoring and PFTs. Outpatient follow up (scheduled) and could consider further ischemic evaluation if current testing fails to reveal any pathology to explain symptoms. Subjective feels much better, walked from shower without symptoms. No chest pain, dyspnea , lightheadedness or palpitations. Objective Limited echo 06/30/18 The left ventricular systolic function is normal and the ejection fraction is within normal range. The Ejection Fraction is 55-60%. There is normal LV segmental wall motion. The mitral valve is calcified but opens well. Posterior mitral annular calcification is severe. Doppler and Color-flow revealed mild mitral regurgitation. Limited echo only. Echo 10/15/17 The left ventricular systolic function is normal and the ejection fraction is within normal range. The Ejection Fraction is 55%. Transmitral Doppler flow pattern is Grade I-abnormal relaxation pattern. The left atrium size is mildly dilated The right atrium size is normal. The aortic valve is calcified and displays decreased opening. Doppler and Color Flow revealed trace aortic regurgitation. Calculated aortic valve area is 1.45 cm2 with maximum pressure gradient of 31 mmHg and mean pressure gradient of 19 mmHg. Doppler and color-flow analysis revealed mild aortic stenosis. The mitral valve is calcified but opens well. Posterior mitral annular calcification is mild. Doppler and Color-flow revealed mild to moderate mitral regurgitation. Doppler and Color Flow revealed mild tricuspid regurgitation. There is mild pulmonary hypertension. The PA pressure was estimated at 33 mmHg. The pulmonic valve is not well visualized. There is a small amount of pericardial effusion. MPI 10/15/17 Conclusion 1. Regadenoson cardioisotope stress test did not show any evidence of ischemia or infarct. 2. Normal left ventricular systolic function with ejection fraction calculated at 75%. 3. Low risk for cardiac events. Vital Signs Date Time Temp Pulse Resp B/P (MAP) Pulse Ox O2 Delivery O2 Flow Rate FiO2 07/01/18 08:28 88 124/62 07/01/18 08:00 Room Air 07/01/18 05:30 97.0 18 100 Intake and Output 07/01/18 07:01 Intake Total 3170 ml Balance 3170 ml Intake Oral 2120 ml IV Total 1050 ml # Voids 9 Abdomen: Normal bowel sounds, Soft, No tenderness Heart: Normal S1, Normal S2, Other (no gallops, 2/6 Systolic murmur) Extremities: No cyanosis, Other (trace edema) General: Alert, Oriented X3, Cooperative HEENT: Atraumatic, EOMI Lungs: Clear to auscultation Neuro: Normal speech, Strength at 5/5 X4 ext Psych/Mental Status: Mental status NL, Mood NL Review of Relevant I have reviewed the following items shayla (where applicable) has been applied. Labs Laboratory Tests Test 06/30/18 02:15 06/30/18 03:10 06/30/18 04:10 06/30/18 07:45 White Blood Count 4.9 x10^3/uL (4.0-11.0) Red Blood Count 3.70 x10^6/uL (3.50-5.40) Hemoglobin 12.0 g/dL (12.0-15.5) Hematocrit 36.1 % (36.0-47.0) Mean Corpuscular Volume 98 fL (79-100) Mean Corpuscular Hemoglobin 33 pg (25-35) Mean Corpuscular Hemoglobin Concent 33 g/dL (31-37) Red Cell Distribution Width 14.4 % (11.5-14.5) Platelet Count 129 x10^3/uL (140-400) Neutrophils (%) (Auto) 66 % (31-73) Lymphocytes (%) (Auto) 21 % (24-48) Monocytes (%) (Auto) 9 % (0-9) Eosinophils (%) (Auto) 4 % (0-3) Basophils (%) (Auto) 1 % (0-3) Neutrophils # (Auto) 3.3 x10^3uL (1.8-7.7) Lymphocytes # (Auto) 1.0 x10^3/uL (1.0-4.8) Monocytes # (Auto) 0.4 x10^3/uL (0.0-1.1) Eosinophils # (Auto) 0.2 x10^3/uL (0.0-0.7) Basophils # (Auto) 0.0 x10^3/uL (0.0-0.2) Prothrombin Time 10.2 SEC (9.4-11.4) Prothromb Time International Ratio 1.0 (0.9-1.1) Activated Partial Thromboplast Time 25 SEC (23-33) D-Dimer (Shanice) 1.25 mg/L (0.00-0.50) Sodium Level 141 mmol/L (136-145) Potassium Level 3.9 mmol/L (3.5-5.1) Chloride Level 106 mmol/L (98-107) Carbon Dioxide Level 28 mmol/L (21-32) Anion Gap 7 (6-14) Blood Urea Nitrogen 18 mg/dL (7-20) Creatinine 0.8 mg/dL (0.6-1.0) Estimated GFR (Cockcroft-Gault) 68.0 Glucose Level 113 mg/dL (70-99) Calcium Level 9.5 mg/dL (8.5-10.1) Magnesium Level 1.4 mg/dL (1.8-2.4) Total Bilirubin 0.4 mg/dL (0.2-1.0) Direct Bilirubin 0.1 mg/dL (0.0-0.2) Aspartate Amino Transf (AST/SGOT) 13 U/L (15-37) Alanine Aminotransferase (ALT/SGPT) 14 U/L (14-59) Alkaline Phosphatase 63 U/L (46-116) Creatine Kinase 30 U/L (26-192) Creatine Kinase MB (Mass) 0.8 ng/mL (0.0-3.6) Creatine Kinase MB Relative Index 2.7 % (0-4) Troponin I Quantitative < 0.017 ng/mL (0-0.055) SO-Blo-K-Type Natriuretic Peptide 76 pg/mL (0-449) Total Protein 7.0 g/dL (6.4-8.2) Albumin 3.3 g/dL (3.4-5.0) Triglycerides Level 69 mg/dL (0-150) Cholesterol Level 157 mg/dL (0-200) LDL Cholesterol, Calculated 79 mg/dL (0-100) VLDL Cholesterol, Calculated 13 mg/dL (0-40) Non-HDL Cholesterol Calculated 92 mg/dL (0-129) HDL Cholesterol 65 mg/dL (40-60) Cholesterol/HDL Ratio 2.0 Lipase 115 U/L (73-393) Thyroid Stimulating Hormone (TSH) 1.990 uIU/mL (0.358-3.740) Urine Collection Type Unknown Urine Color Yellow Urine Clarity Clear Urine pH 5.5 Urine Specific Ophelia 1.015 Urine Protein Trace (NEG-TRACE) Urine Glucose (UA) Neg mg/dL (NEG) Urine Ketones (Stick) Neg mg/dL (NEG) Urine Blood Small (NEG) Urine Nitrite Neg (NEG) Urine Bilirubin Neg (NEG) Urine Urobilinogen Dipstick 0.2 mg/dL (0.2 mg/dL) Urine Leukocyte Esterase Small (NEG) Urine RBC Occ /HPF (0-2) Urine WBC 5-10 /HPF (0-4) Urine Squamous Epithelial Cells Occ /LPF Urine Bacteria Few /HPF (0-FEW) Influenza Type A (Rapid) Negative (NEGATIVE) Influenza Type B (Rapid) Negative (NEGATIVE) Nasal Screen MRSA (PCR) Negative (Negative) Test 06/30/18 10:21 07/01/18 06:50 Glucose (Fingerstick) 254 mg/dL (70-99) White Blood Count 3.9 x10^3/uL (4.0-11.0) Red Blood Count 3.38 x10^6/uL (3.50-5.40) Hemoglobin 11.2 g/dL (12.0-15.5) Hematocrit 33.1 % (36.0-47.0) Mean Corpuscular Volume 98 fL (79-100) Mean Corpuscular Hemoglobin 33 pg (25-35) Mean Corpuscular Hemoglobin Concent 34 g/dL (31-37) Red Cell Distribution Width 14.6 % (11.5-14.5) Platelet Count 112 x10^3/uL (140-400) Neutrophils (%) (Auto) 51 % (31-73) Lymphocytes (%) (Auto) 33 % (24-48) Monocytes (%) (Auto) 10 % (0-9) Eosinophils (%) (Auto) 6 % (0-3) Basophils (%) (Auto) 1 % (0-3) Neutrophils # (Auto) 2.0 x10^3uL (1.8-7.7) Lymphocytes # (Auto) 1.3 x10^3/uL (1.0-4.8) Monocytes # (Auto) 0.4 x10^3/uL (0.0-1.1) Eosinophils # (Auto) 0.2 x10^3/uL (0.0-0.7) Basophils # (Auto) 0.0 x10^3/uL (0.0-0.2) Sodium Level 139 mmol/L (136-145) Potassium Level 4.0 mmol/L (3.5-5.1) Chloride Level 106 mmol/L (98-107) Carbon Dioxide Level 25 mmol/L (21-32) Anion Gap 8 (6-14) Blood Urea Nitrogen 13 mg/dL (7-20) Creatinine 0.8 mg/dL (0.6-1.0) Estimated GFR (Cockcroft-Gault) 68.0 Glucose Level 94 mg/dL (70-99) Calcium Level 8.9 mg/dL (8.5-10.1) Medications Current Medications Aspirin (Children'S Aspirin) 324 mg 1X ONCE PO Last administered on 06/30/18at 02:19; Start 06/30/18 at 02:00; Stop 06/30/18 at 02:01; Status DC Sodium Chloride 1,000 ml @ 100 mls/hr Q10H IV Last administered on 06/30/18at 02:21; Start 06/30/18 at 02:00; Stop 06/30/18 at 11:59; Status DC Magnesium Sulfate 50 ml @ 25 mls/hr 1X ONCE IV Last administered on 06/30/18at 04:47; Start 06/30/18 at 04:00; Stop 06/30/18 at 05:59; Status DC Iohexol (Omnipaque 350 Mg/ml) 100 ml 1X ONCE IV Last administered on at 03:45; Start 06/30/18 at 04:00; Stop 06/30/18 at 04:01; Status DC Info (Do NOT chart on this entry -- for MONITORING) 1 each PRN DAILY PRN MC SEE COMMENTS; Start 06/30/18 at 03:45; Stop 07/02/18 at 03:44 Ceftriaxone Sodium 1 gm/ Sodium Chloride 50 ml @ 100 mls/hr 1X ONCE IV Last administered on 06/30/18at 04:08; Start 06/30/18 at 04:00; Stop 06/30/18 at 04:29 ; Status DC Sodium Chloride 50 ml @ As Directed STK-MED ONCE .ROUTE ; Start 06/30/18 at 04: 00; Stop 06/30/18 at 04:02; Status DC Ceftriaxone Sodium (Rocephin) 1 gm STK-MED ONCE IV ; Start 06/30/18 at 04:00; Stop 06/30/18 at 04:02; Status DC Ondansetron HCl (Zofran) 4 mg PRN Q4HRS PRN IV NAUSEA/VOMITING; Start 06/30/18 at 04:00; Stop 06/30/18 at 08:42; Status DC Albuterol/ Ipratropium (Duoneb) 3 ml RTQID NEB ; Start 06/30/18 at 08:00; Stop 06/30/18 at 09:26; Status DC Enoxaparin Sodium (Lovenox 120mg Syringe) 110 mg Q12HR SQ ; Start 06/30/18 at 04 :30; Stop 06/30/18 at 04:30; Status DC Ceftriaxone Sodium 1 gm/ Sodium Chloride 50 ml @ 100 mls/hr QHS IV Last administered on 06/30/18at 21:04; Start 06/30/18 at 21:00 Aspirin (Children'S Aspirin) 81 mg DAILY PO ; Start 06/30/18 at 09:00; Stop at 09:00; Status DC Enoxaparin Sodium (Lovenox 100mg Syringe) 100 mg Q12HR SQ Last administered on 06/30/18at 12:06; Start 06/30/18 at 04:30; Stop 06/30/18 at 21:00; Status DC Info (Anti-Coagulation Monitoring By Pharmacy) 1 each PRN DAILY PRN MC SEE COMMENTS; Start 06/30/18 at 04:30; Status Cancel Acetaminophen (Tylenol) 500 mg STK-MED ONCE PO ; Start 06/30/18 at 04:52; Stop 06/30/18 at 04:53; Status DC Acetaminophen (Tylenol) 1,000 mg 1X ONCE PO Last administered on 06/30/18at 05: 01; Start 06/30/18 at 05:00; Stop 06/30/18 at 05:01; Status DC Levothyroxine Sodium (Synthroid) 112 mcg DAILY06 PO Last administered on at 05:32; Start 06/30/18 at 08:00; Stop 07/01/18 at 05:48; Status DC Ondansetron HCl (Zofran) 4 mg PRN Q8HRS PRN IV NAUSEA/VOMITING; Start 06/30/18 at 08:30 Aspirin (Aspirin Enteric Coated) 325 mg DAILY08 PO Last administered on at 08:29; Start 07/01/18 at 08:00 Levothyroxine Sodium (Synthroid) 112 mcg DAILY06 PO ; Start 07/01/18 at 06:00; Status Cancel Atorvastatin Calcium (Lipitor) 10 mg QHS PO Last administered on 06/30/18at 19: 49; Start 06/30/18 at 21:00 Lisinopril (Prinivil) 2.5 mg DAILY PO ; Start 06/30/18 at 09:00; Stop 07/01/18 at 06:51; Status DC Aspirin (Ally Aspirin) 325 mg STK-MED ONCE .ROUTE ; Start 06/30/18 at 08:35; Stop 06/30/18 at 08:37; Status DC Lisinopril (Prinivil) 2.5 mg STK-MED ONCE .ROUTE Last administered on at 08:39; Start 06/30/18 at 08:35; Stop 06/30/18 at 08:37; Status DC Albuterol/ Ipratropium (Duoneb) 3 ml RTQID PRN NEB SHORTNESS OF BREATH; Start 06/30/18 at 09:30 Lactobacillus Rhamnosus (Culturelle) 1 cap BID PO Last administered on at 08:28; Start 06/30/18 at 21:00 Acetaminophen (Tylenol) 1,000 mg PRN Q6HRS PRN PO pain Last administered on at 19:48; Start 06/30/18 at 18:45 Alprazolam (Xanax) 0.25 mg QHS PO Last administered on 06/30/18at 19:48; Start 06/30/18 at 21:00 Enoxaparin Sodium (Lovenox 40mg Syringe) 40 mg DAILY SQ Last administered on at 08:29; Start 07/01/18 at 09:00 Levothyroxine Sodium (Synthroid) 112 mcg DAILY06 PO ; Start 07/02/18 at 06:00 Lisinopril (Prinivil) 2.5 mg DAILY PO Last administered on 07/01/18at 08:28; Start 07/01/18 at 09:00 Active Scripts Active Cefpodoxime Proxetil 200 Mg Tablet 1 Tab PO BID Reported Metformin Hcl 500 Mg Tablet 1 Tab PO DAILY Lisinopril 2.5 Mg Tablet 1 Tab PO DAILY Centrum Silver Tablet (Multivits-Min/Fa/Lycopene/Lut) 1 Each Tablet 1 Each PO DAILY LAST DOSE GIVEN: DATE: TODAY TIME: AM NEXT DOSE DUE: DATE: TOMORROW TIME: AM Garlique (Garlic) 5,000 Mcg Tablet 5,000 Mcg PO DAILY LAST DOSE GIVEN: NOT GIVEN THIS ADMISSION NEXT DOSE DUE: DATE: TOMORROW TIME: AM DATE: TIME: Vitamin D3 (Cholecalciferol (Vitamin D3)) 1,000 Unit Tablet 2,000 Unit PO DAILY LAST DOSE GIVEN: DATE: TODAY TIME: AM NEXT DOSE DUE: DATE: TOMORROW TIME: AM Aspirin Ec (Aspirin) 325 Mg Tablet.dr 325 Mg PO DAILY08 LAST DOSE GIVEN: DATE: TODAY TIME: AM NEXT DOSE DUE: DATE: TOMORROW TIME: AM Levothyroxine Sodium 112 Mcg Tablet 112 Mcg PO DAILY06 LAST DOSE GIVEN: NOT GIVEN THIS ADMISSION NEXT DOSE DUE: DATE: TOMORROW TIME: AM Atorvastatin Calcium 10 Mg Tablet 10 Mg PO QHS LAST DOSE GIVEN: NOT GIVEN THIS ADMISSION NEXT DOSE DUE: DATE: TODAY TIME: AT BEDTIME Vitals/I & O Vital Sign - Last 24 Hours 06/30/18 06/30/18 06/30/18 06/30/18 11:42 11:48 11:48 15:16 Pulse 70 68 68 84 Resp 20 20 20 20 B/P (MAP) 133/74 (93) 136/62 (86) 132/61 (84) 135/69 (91) Pulse Ox 99 99 O2 Delivery Room Air Room Air Room Air Room Air 06/30/18 06/30/18 06/30/18 06/30/18 19:01 19:32 20:00 23:00 Temp 98.4 98.4 Pulse 80 75 72 Resp 18 18 20 B/P (MAP) 135/58 (83) 119/49 (72) 122/58 (79) Pulse Ox 97 100 O2 Delivery Room Air Room Air Room Air Room Air 07/01/18 07/01/18 07/01/18 05:30 08:00 08:28 Temp 97.0 Pulse 73 88 Resp 18 B/P (MAP) 114/52 (72) 124/62 Pulse Ox 100 O2 Delivery Room Air Room Air Intake and Output 06/30/18 06/30/18 07/01/18 15:01 23:01 07:01 Intake Total 500 ml 2009 ml 660 ml Balance 500 ml 2010 ml 660 ml NOHEMY MAGANA [employer] Jul 01, 2018 09:59
[2018-07-01 11:12] VITALS: BP 138/68
[2018-07-01] MEDS ORDERED: ALPRAZolam 0.25 MG TABLET PO PRN (12:15)
[2018-07-01] MEDS: ALPRAZolam 0.25 MG TABLET PO SCH (12:17)
[2018-07-01 15:00] VITALS: BP 112/61
--- NOTE | 2018-07-01 18:23 | DS ---
DATE OF DISCHARGE: 07/01/2018 HOSPITAL COURSE: The patient is an 88-year-old female patient who was admitted with complaint of shortness of breath and labile hypertension. She was extensively investigated in the Emergency Room. Her EKG was found to be in sinus rhythm, no ST segment elevation or depression. Her D-dimer was elevated and she has CT angio of the chest, which basically showed that she has mild cardiomegaly, diffuse coronary artery calcification, however, no pulmonary embolism. She was seen in consultation by the circular sawyer stone who recommended pulmonary function tests as an outpatient. As they were normal, they will consider further ischemic workup. She has an episodic accelerated hypertension that might be related to anxiety. I did actually order a renal duplex ultrasound to rule out the possibility of renal artery stenosis. She has hypertension, hyperlipidemia that seems to be well controlled as well as type 2 diabetes. She remained stable overnight and her blood pressure remained within acceptable range. A decision was made to discharge her home to continue on all her medication as well as Xanax and an arrangement has been made for her to have pulmonary function test as an outpatient and also renal duplex ultrasound. PHYSICAL EXAMINATION: GENERAL: When I saw her today, she looked well and was clearly in no apparent respiratory distress. No pallor, jaundice, cyanosis, or thyromegaly. No jugular venous distension. No limb edema. VITAL SIGNS: Her heart rate was 74, blood pressure was 138/68, temperature was 97.6, respiratory rate 20, and oxygen saturation was 100%. HEAD, EYES, EARS, NOSE AND THROAT: Showed normocephalic, atraumatic. NECK: Supple. HEART: Showed normal first and second heart sounds with no gallop, rub or murmur. CHEST: Clear to auscultation. No crepitation or rhonchi. ABDOMEN: Distended, soft, nontender. NEUROLOGIC: She was awake, alert, responding appropriately. All cranial nerves intact. She moves extremities without difficulty. She ambulates without assistance or assistive devices. LABORATORY DATA: Showed serum sodium 139, potassium 4, chloride 106, bicarbonate 25, anion gap of 8, BUN 13, creatinine 0.8, estimated GFR was 68 mL per minute. Her glucose was 94, calcium was 8.9. Her serum triglycerides were 69, total cholesterol 157, LDL cholesterol was 79, VLDL was 13, HDL cholesterol was 65 and ratio was 2. Her lipase was 115 and TSH was normal at 1.0990. Her white cell count this morning was 3900, hemoglobin 11, hematocrit 33, MCV 98, and platelet count of 112,000. Her influenza A and B were negative. Nasal screen for MRSA PCR was negative and her urinalysis was essentially unremarkable. DISCHARGE MEDICATIONS: The patient was discharged home to continue on Xanax 0.25 mg every 6 hours as needed, aspirin 325 mg once a day, atorvastatin calcium 10 mg at bedtime, cholecalciferol 2000 international units once a day, Garlique 5000 mcg daily, levothyroxine sodium 112 mcg once a day, lisinopril 2.5 mg once a day, metformin 500 mg daily, and multivitamin with mineral 1 tablet once a day. FINAL DISCHARGE DIAGNOSES: 1. Dyspnea on exertion for which outpatient pulmonary function test was arranged. 2. Episodic accelerated hypertension, for which I have arranged for her to have a renal Doppler ultrasound to rule out possibility of renal artery stenosis, hyperlipidemia, hypothyroidism, seems that the patient both clinically and biochemically euthyroid. 3. Type 2 diabetes, well controlled on 500 mg of metformin. Hemoglobin A1c was only 5.1%. DEIRDRE MCKEON MD DR: PENELOPE/ricardo JOB#: [id number] / [id number]
[2018-07-02] MEDS ORDERED: LEVOTHYROXINE 112 MCG TABLET PO SCH (06:00)
== END 2018-07-01 16:30 | disposition home or self-care (01) | DRG 699 ==
LOC: ER 01:28 → ICU 03:30
PROVIDERS: ADMIT Internal Medicine; ATTEND Internal Medicine
DX: I70.1 Atherosclerosis of renal artery (principal); E44.0 Moderate protein-calorie malnutrition; R06.09 Other forms of dyspnea; D69.6 Thrombocytopenia, unspecified; E03.9 Hypothyroidism, unspecified; E11.9 Type 2 diabetes mellitus without complications; E78.00 Pure hypercholesterolemia, unspecified; E78.5 Hyperlipidemia, unspecified; E83.42 Hypomagnesemia; F41.9 Anxiety disorder, unspecified; I10 Essential (primary) hypertension; I25.10 Atherosclerotic heart disease of native coronary artery without angina pectoris; I49.3 Ventricular premature depolarization; K21.9 Gastro-esophageal reflux disease without esophagitis; R53.82 Chronic fatigue, unspecified; Z80.0 Family history of malignant neoplasm of digestive organs; Z80.1 Family history of malignant neoplasm of trachea, bronchus and lung; Z82.49 Family history of ischemic heart disease and other diseases of the circulatory system; Z98.41 Cataract extraction status, right eye; Z87.891 Personal history of nicotine dependence; Z98.42 Cataract extraction status, left eye; M19.90 Unspecified osteoarthritis, unspecified site; Z87.440 Personal history of urinary (tract) infections; Z79.899 Other long term (current) drug therapy; Z88.8 Allergy status to other drugs, medicaments and biological substances
CPT/HCPCS: 36415; 71045; 71275; 80048; 80061; 80076; 81001; 82553; 82947; 83690; 83735; 83880; 84443; 84484; 85025; 85379; 85610; 85730; 87086; 87641; 87804; 93005; 93308; 93320; 93325; 93970; 96361; 96365; 96366; 96367; J0696; J1650; J3475; Q9967; 99285-25; J7030

== ENCOUNTER → 2018-07-09 | Outpatient (CLI) | payer MEDICARE ==
[2018-07-01 15:00] VITALS: BP 112/61
[~2018-07-09] MED LIST changes: -AMLO10TA6 PO; +AMLO10TA8 PO; +LISI2.5T PO; +METF500T16 PO
--- NOTE | 2018-07-09 09:22 | RAD ---
Bilateral renal ultrasound Doppler duplex 07/09/2017 CLINICAL INDICATION: Uncontrolled hypertension. COMPARISON: None. FINDINGS: There is aneurysmal dilatation of the infrarenal abdominal aorta measuring up to 3.3 cm. Velocity in the abdominal aorta 79 cm/s. Right kidney measures 10.6 centers in length without hydronephrosis or abnormal perinephric fluid collection. Color Doppler and spectral waveform analysis of the main right renal vasculature demonstrates patency and normal directional flow of the right renal vein and artery. There is mild nonspecific elevation of the intrarenal resistive indices ranging from 0.70-0.80. Maximal velocity in the main right renal artery is 161 cm/s at the proximal aspect. Left kidney measures 10.6 cm in length. There is mild left hydronephrosis which extends into the renal pelvis. Color Doppler imaging and spectral waveform analysis of the main left renal vasculature demonstrates patency and normal directional flow of the main left renal vein and artery. Maximal velocity of the left renal artery is 118 cm/s at the distal aspect. No evidence of delayed systolic acceleration. There is minimal nonspecific elevation of the intrarenal resistive indices measuring up to 0.72. Patient urinated prior to examination with a large post void residual urinary bladder volume estimated at 790 mL. Posterior to the urinary bladder is a simple appearing oval cystic structure measuring 6.1 x 3.0 x 5.1 cm. IMPRESSION: 1. Mild left hydronephrosis of unclear etiology. There is also a large postvoid residual urinary bladder volume which may contribute, however the hydronephrosis is asymmetric. Clinical correlation is recommended. 2. Right kidney present without hydronephrosis. 3. No evidence of hemodynamically significant renal arterial stenosis. 4. Cystic structure posterior to the urinary bladder is indeterminate and ovarian etiology is not excluded. 5. Infrarenal abdominal aortic aneurysm measuring up to 3.3 cm. If clinically indicated, CT abdomen and pelvis and pelvic ultrasound could be obtained for further evaluation of the above findings. Electronically signed by: Marcellus Elaine MD (07/09/2018 9:17 AM) [facility]
== END | disposition home or self-care (01) ==
LOC: US 07:42
PROVIDERS: ATTEND Internal Medicine
DX: I71.4 Abdominal aortic aneurysm, without rupture (principal); N13.30 Unspecified hydronephrosis; J44.9 Chronic obstructive pulmonary disease, unspecified; I10 Essential (primary) hypertension
CPT/HCPCS: 76770

== ENCOUNTER → 2018-10-20 | Outpatient (CLI) | payer MEDICARE ==
--- NOTE | 2018-10-20 11:58 | RAD ---
Examination: CT CHEST WO CONTRAST History: Lung nodule Comparison/Correlation: 06/30/2018 CTA of the chest and 07/03/2016 CTA of the chest Findings: Axial images of chest were obtained without contrast. Sagittal and coronal reformatted images were provided. 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 No enlarged thoracic lymph nodes. Marked coronary arterial calcification. Mitral annular calcification noted. Calcified granulomas are present. No pleural or pericardial effusion. No pneumothorax. At the medial right lung base, there is a 1.5 cm x 0.7 cm x 0.9 cm longitudinal noncalcified nodule which is slightly increased in size as compared to 06/30/2018. It is increased by approximately 0.2 cm in the longitudinal dimension compared to prior exam. It is slightly irregular marginated similar to prior exam. There is a new right middle lobe nodule just inferior to the level of the minor fissure. This measures up to 1 cm x 0.7 cm x 0.9 cm longitudinal. It is noncalcified. It is irregularly marginated with spiculations. Partially visualized upper abdomen is unremarkable. Bony structures are grossly unremarkable for the patient's age. Impression: New right middle lobe nodule. Slight increase in previously seen right lower lobe nodule. Infectious or neoplastic etiologies may account for these findings. An consider further evaluation with PET/CT imaging and/or other evaluation. PQRS Compliance Statement: One or more of the following individualized dose reduction techniques were utilized for this examination: 1. Automated exposure control 2. Adjustment of the mA and/or kV according to patient size 3. Use of iterative reconstruction technique Electronically signed by: Kevon Ace MD (10/20/2018 11:55 AM) [facility]
== END | disposition home or self-care (01) ==
LOC: CT 08:39
PROVIDERS: ATTEND Internal Medicine Critical Care Medicine
DX: J84.10 Pulmonary fibrosis, unspecified (principal); J39.8 Other specified diseases of upper respiratory tract; R91.8 Other nonspecific abnormal finding of lung field; E04.9 Nontoxic goiter, unspecified; I25.10 Atherosclerotic heart disease of native coronary artery without angina pectoris; I05.8 Other rheumatic mitral valve diseases
CPT/HCPCS: 71250

== ENCOUNTER 2019-07-27 19:42 | Emergency (ER) | payer MEDICARE ==
[~2019-07-27] VITALS: Ht 167.6 cm; Wt 136.4 kg
--- NOTE | 2019-07-27 23:43 | PHYS DOC ---
Past History Past Medical History: Anxiety, Arthritis, Arrhythmia, CAD, Diabetes, High Cholesterol, Hypertension, Hypothyroid, Renal Disease, Other Past Surgical History: Angioplasty, Other Past Surgical History Stents Smoking: Quit Greater Than 1 Year Alcohol Use: None Drug Use: None Adult General Chief Complaint Chief Complaint: ABDOMINAL PAIN.. " I am hurting down below.. I feel .. like Janette got to pee all the time.. but only a few drops come out....".. " I see Guillermo.. and Dr. Rodrigues... Dr. Li said to drink 4 quarts a day.. I am .. but I am not peeing.. and I hurt so bad..." [facility] HPI Patient is a 89 year old female who presents with lower abd. pain and urinary retention complaints. Patient states lower abdomen pain has become much more severe tonight. Patient has bilateral flank pain on percussion. Patient does have a remote history of urinary retention years ago. Patient seen a urologist at [facility] at that time. Patient denies any intake bad food. Patient states she has had stools. Patient does have a significant medical history for coronary artery disease with stent placements, anemia, and diabetes. Patient does have chronic lower leg edema, arthritis and weakness. Patient normally follows with Dr. Martinez. Has recently seen Dr. Li- Nephrology. Review of Systems Review of Systems Constitutional: Denies fever or chills [] Eyes: Denies change in visual acuity, redness, or eye pain [] HENT: Denies nasal congestion or sore throat [] Respiratory: Denies cough or shortness of breath [] Cardiovascular: No additional information not addressed in HPI [] GI: Complaints of generalized abdominal pain, nausea, and flank pain. : Complains of dysuria or hematuria and inability to empty her bladder Musculoskeletal: Denies back pain or joint pain [] Integument: Denies rash or skin lesions [] Neurologic: Denies headache, focal weakness or sensory changes [] Endocrine: Denies polyuria or polydipsia [] All other systems were reviewed and found to be within normal limits, except as documented in this note. Family History Family History Noncontributory presentation Current Medications Current Medications See nursing for home meds Allergies Allergies Allergies Coded Allergies Type Severity Reaction Last Updated Verified demeclocycline Allergy Mild "SWELLS UP" 5/25/14 Yes Physical Exam Physical Exam Constitutional: in acute distress, non-toxic appearance. [] HENT: Normocephalic, atraumatic, bilateral external ears normal, oropharynx moist, no oral exudates, nose normal. Very hard of hearing Eyes: PERRLA, EOMI, conjunctiva normal, no discharge. [] Neck: Normal range of motion, no tenderness, supple, no stridor. [] Cardiovascular: Tachycardia Heart rate regular rhythm, no murmur []PMI to the left Lungs & Thorax: Bilateral breath sounds basilar crackles on auscultation [] Abdomen: Bowel sounds decreased, soft, lower pelvic tenderness, , no pulsatile masses. Obese. Very distended bladder area. Bilateral flank tenderness. Skin: Warm, dry, no erythema, no rash. Poor turgor Back: No tenderness, no CVA tenderness. [] Extremities: No tenderness, no cyanosis, no clubbing, ROM intact, bilateral ankle edema. [] Arthritic changes. Weak and shuffling gait Neurologic: Alert and oriented X 3, lower leg motor weakness,, decrease plantar sensory function, no new focal deficits noted by patient or family members Psychologic: Affect very anxious, judgement normal, mood depressed. Current Patient Data Vital Signs Vital Signs Date Time Temp Pulse Resp B/P (MAP) Pulse Ox O2 Delivery O2 Flow Rate FiO2 07/27/19 21:06 96 18 177/67 (103) 98 Room Air 07/27/19 21:03 98.3 EKG EKG My interpretation EKG shows a sinus rhythm at 99 bpm. No findings acute STEMI of contralateral changes.[] Radiology/Procedures Radiology/Procedures [[address] [address] IMAGING REPORT Signed PATIENT: MORGAN ANDRADE ACCOUNT: [id number] : 1930 LOCATION: ER AGE: 89 SEX: F EXAM STATUS: REG ER ORD. PHYSICIAN: JOSE MARIA ZAVALA MD REASON: Severe lower abdomen pain, blood in urine PROCEDURE: CT ABD PEL W/ORAL CONTRST ONLY INDICATION: Abdomen pain with blood in urine COMPARISON: None. TECHNIQUE: Axial CT images obtained through the without intravenous contrast. Oral contrast was given. One or more of the following individualized dose reduction techniques were utilized for this examination: 1. Automated exposure control; 2. Adjustment of the mA and/or kV according to patient size; 3. Use of iterative reconstruction technique. FINDINGS: Nodular opacity at the right lung base measuring up to about 9 mm. A portion of this is likely secondary to vessels. Mitral annulus calcification. Severe calcific atherosclerosis with infrarenal abdominal aortic ectasia measuring up to 38 mm. Fat-containing left greater than right inguinal hernia. Small focus of fluid is seen to the left of the distal esophagus measuring up to 18 mm. Could be small fluid within the region or cystic lesion such as duplication cyst. No intrahepatic bile duct dilation. No peripancreatic fluid collection. Spleen unremarkable. Severe bilateral hydronephrosis with hydroureter. Urinary bladder is largely decompressed with catheter. Thickening of the wall with adjacent edema to the fat. Appendix not well seen. Tiny fat-containing umbilical hernia. No dilated loops of bowel to suggest obstruction. Degenerative changes of the spine. Degenerative changes throughout the spine with multilevel central canal and neural foraminal stenosis. Osseous demineralization. Linear band of sclerosis within the superior sacrum. IMPRESSION: * Severe bilateral hydronephrosis and hydroureter. * Urinary bladder is decompressed with catheter but there is severe wall thickening as well as adjacent edema to the fat. Would correlate for possible causes including cystitis or bladder neoplasm. Chronic bladder outlet obstruction could also be a possible cause. * Osseous demineralization within the spine which limits assessment. Linear band of sclerosis within the sacrum which could be secondary to nondisplaced fracture of unknown age. * Suspected right lung base nodule. Fleischner Society recommendations for solitary solid lung nodule follow up.: In a low risk patient: <6mm - No follow up required. 6-8mm - 6-[address], then CT at 18-24 months. >8mm - CT at 3 months, PET/CT or tissue sampling. In a high risk patient (history of smoking or other known risk factors): <6mm - Follow up CT at 12 months. 6-8mm - 6-[address], then CT at 18-24 months. >8mm - CT at 3 months, PET/CT or tissue sampling. Fleischner Society recommendations for multiple solid lung nodule follow up.: In a low risk patient: <6mm - No follow up required. 6-8mm - 3-[address], then CT at 18-24 months. >8mm - CT at 3-6 months, then at 18-24 months. PET/CT or tissue sampling based on most suspicious nodule. In a high risk patient (history of smoking or other known risk factors): <6mm - Follow up CT at 12 months. 6-8mm - 3-[address], then CT at 18-24 months. >8mm - CT at 3-6 months, PET/CT or tissue sampling option based on most suspicious nodule. Electronically signed by: Rosy Sosa MD (07/28/2019 2:29 AM) [id number] DICTATED AND SIGNED BY: ROSY SOSA MD DATE: 07/28/19228 CC: JOSE MARIA ZAVALA MD; KOFI MARTINEZ MD ~ ][place] [address] IMAGING REPORT Signed PATIENT: MORGAN ANDRADE ACCOUNT: [id number] : 1930 LOCATION: ER AGE: 89 SEX: F EXAM STATUS: REG ER ORD. PHYSICIAN: JOSE MARIA ZAVALA MD REASON: Severe lower abdomen pain, frequent urination with blood PROCEDURE: ACUTE ABDOMEN SERIES INDICATION: Abdomen pain COMPARISON: March 22, 2016 IMPRESSION: 4 views of chest and abdomen obtained. Enlarged cardiomediastinal silhouette. Hyperexpanded lungs with some disorganization of the pulmonary markings. Would correlate for possible causes such as emphysema. Linear opacity left lower lung could be from scarring or atelectasis. Degenerative changes spine. Air scattered throughout the large and small bowel in a nonspecific but not grossly obstructive pattern. Electronically signed by: Rosy Sosa MD (07/28/2019 12:28 AM) [id number] DICTATED AND SIGNED BY: ROSY SOSA MD DATE: 07/28/19 002 CC: JOSE MARIA ZAVALA MD; KOFI MARTINEZ MD ~ Course & Med Decision Making Course & Med Decision Making Pertinent Labs and Imaging studies reviewed. (See chart for details) After placement of Benedict catheter. Patient had more than 1000 mL of urine out. Had marked hematuria. Did have some significant decrease in pain symptoms after bladder placement Family does not want to be referred to but will accept transfer to [facility] if this could be arranged. Current currently we have no urology consult availability in our hospital or [facility] Discussed transfer a patient with admission transfers center- Dr.S. Hodges Hospitalist will accept pt. in transfer. Impression- 1. Abdomen pain 2. Acute urinary retention with severe bilateral hydronephrosis and hydroureter 3. Severe wall thickening and adjacent edema in fat complaints of bladder suspects cystitis versus bladder neoplasm 4. Anemia of chronic disease hemoglobin 10.0 5. Hyperkalemia- potassium 5.4 6. Elevated BUN and creatinine 41/1.6 7. Anxiety disorder [] Dragon Disclaimer Dragon Disclaimer This electronic medical record was generated, in whole or in part, using a voice recognition dictation system. Departure Departure: Disposition: 01 HOME/RESIDENCE PRIOR TO ADM Condition: STABLE Referrals: KOFI MARTINEZ MD (PCP) Scripts Levofloxacin (LEVAQUIN) 500 Mg Tablet 500 MG PO DAILY for uti, #10 TAB Prov: JOSE MARIA ZAVALA MD 07/28/19 [place] Disclaimer This chart was dictated in whole or in part using Voice Recognition software in a busy, high-work load, and often noisy Emergency Department environment. It may contain unintended and wholly unrecognized errors or omissions. Dragon Disclaimer This chart was dictated in whole or in part using Voice Recognition software in a busy, high-work load, and often noisy Emergency Department environment. It may contain unintended and wholly unrecognized errors or omissions. JOSE MARIA ZAVALA MD Jul 27, 2019 23:43
[2019-07-27 23:51] LABS: BASO % 0 % (0-3); EOS # 0.2 x10^3/uL (0.0-0.7); EOS % 3 % (0-3); HEMATOCRIT 31.2 % (36.0-47.0); LYMPH # 0.8 x10^3/uL (1.0-4.8); LYMPH % 13 % (24-48); MEAN CORPUSCULAR HEMOGLOBIN 32 pg (25-35); MEAN CORPUSCULAR HGB CONC 32 g/dL (31-37); MEAN CORPUSCULAR VOLUME 100 fL (79-100); MONO # 0.4 x10^3/uL (0.0-1.1); MONO % 7 % (0-9); NEUT # 4.9 x10^3uL (1.8-7.7); NEUT % 77 % (31-73); PLATELET COUNT 155 x10^3/uL (140-400); RED BLOOD COUNT 3.13 x10^6/uL (3.50-5.40); RED CELL DISTRIBUTION WIDTH 14.3 % (11.5-14.5); WHITE BLOOD COUNT 6.3 x10^3/uL (4.0-11.0)
[2019-07-27 23:59] LABS: CREATININE 1.6 mg/dL (0.6-1.0); GFR 30.5
[2019-07-28] MEDS ORDERED: FAMOTIDINE 20 MG/2 ML VIAL IVP ONE
[2019-07-28] MEDS ORDERED: ONDANSETRON PF 4 MG/2 ML VIAL. IVP ONE
[2019-07-28] MEDS ORDERED: IV RINGERS SOLUTION,LACTATED 1,000 ML IV SCH
[2019-07-28 00:06] LABS: ALBUMIN 3.7 g/dL (3.4-5.0); DIRECT BILIRUBIN 0.1 mg/dL (0.0-0.2); TOTAL BILIRUBIN 0.2 mg/dL (0.2-1.0); TOTAL PROTEIN 7.3 g/dL (6.4-8.2)
[2019-07-28 00:08] LABS: POTASSIUM 5.4 mmol/L (3.5-5.1)
--- NOTE | 2019-07-28 00:31 | RAD ---
INDICATION: Abdomen pain COMPARISON: March 22, 2016 IMPRESSION: 4 views of chest and abdomen obtained. Enlarged cardiomediastinal silhouette. Hyperexpanded lungs with some disorganization of the pulmonary markings. Would correlate for possible causes such as emphysema. Linear opacity left lower lung could be from scarring or atelectasis. Degenerative changes spine. Air scattered throughout the large and small bowel in a nonspecific but not grossly obstructive pattern. Electronically signed by: Jony Sosa MD (07/28/2019 12:28 AM) [id number]
[2019-07-28] MEDS ORDERED: CONTRAST GIVEN MC PRN (01:00)
[2019-07-28] MEDS ORDERED: IOHEXOL 240 MG/ML 50ML VIAL. PO ONE (01:00)
[2019-07-28] MEDS ORDERED: IV NORMAL SALINE 1,000ML 1,000 ML IV ONE ×2 (01:00→03:30)
[2019-07-28] MEDS: oxyCODONE/APAP 5/325 1 TAB TABLET PO ONE ×2 (01:22→03:45)
[2019-07-28 02:29] LABS: BARBITURATES NEG (NEG); BENZODIAZEPINES NEG (NEG); CANNABINOIDS NEG (NEG); COCAINE NEG (NEG); METHADONE NEG (NEG); OPIATES NEG (NEG); PHENCYCLIDINE NEG (NEG)
--- NOTE | 2019-07-28 02:32 | RAD ---
INDICATION: Abdomen pain with blood in urine COMPARISON: None. TECHNIQUE: Axial CT images obtained through the without intravenous contrast. Oral contrast was given. One or more of the following individualized dose reduction techniques were utilized for this examination: 1. Automated exposure control; 2. Adjustment of the mA and/or kV according to patient size; 3. Use of iterative reconstruction technique. FINDINGS: Nodular opacity at the right lung base measuring up to about 9 mm. A portion of this is likely secondary to vessels. Mitral annulus calcification. Severe calcific atherosclerosis with infrarenal abdominal aortic ectasia measuring up to 38 mm. Fat-containing left greater than right inguinal hernia. Small focus of fluid is seen to the left of the distal esophagus measuring up to 18 mm. Could be small fluid within the region or cystic lesion such as duplication cyst. No intrahepatic bile duct dilation. No peripancreatic fluid collection. Spleen unremarkable. Severe bilateral hydronephrosis with hydroureter. Urinary bladder is largely decompressed with catheter. Thickening of the wall with adjacent edema to the fat. Appendix not well seen. Tiny fat-containing umbilical hernia. No dilated loops of bowel to suggest obstruction. Degenerative changes of the spine. Degenerative changes throughout the spine with multilevel central canal and neural foraminal stenosis. Osseous demineralization. Linear band of sclerosis within the superior sacrum. IMPRESSION: * Severe bilateral hydronephrosis and hydroureter. * Urinary bladder is decompressed with catheter but there is severe wall thickening as well as adjacent edema to the fat. Would correlate for possible causes including cystitis or bladder neoplasm. Chronic bladder outlet obstruction could also be a possible cause. * Osseous demineralization within the spine which limits assessment. Linear band of sclerosis within the sacrum which could be secondary to nondisplaced fracture of unknown age. * Suspected right lung base nodule. Fleischner Society recommendations for solitary solid lung nodule follow up.: In a low risk patient: <6mm - No follow up required. 6-8mm - 6-[address], then CT at 18-24 months. >8mm - CT at 3 months, PET/CT or tissue sampling. In a high risk patient (history of smoking or other known risk factors): <6mm - Follow up CT at 12 months. 6-8mm - 6-[address], then CT at 18-24 months. >8mm - CT at 3 months, PET/CT or tissue sampling. Fleischner Society recommendations for multiple solid lung nodule follow up.: In a low risk patient: <6mm - No follow up required. 6-8mm - 3-[address], then CT at 18-24 months. >8mm - CT at 3-6 months, then at 18-24 months. PET/CT or tissue sampling based on most suspicious nodule. In a high risk patient (history of smoking or other known risk factors): <6mm - Follow up CT at 12 months. 6-8mm - 3-[address], then CT at 18-24 months. >8mm - CT at 3-6 months, PET/CT or tissue sampling option based on most suspicious nodule. Electronically signed by: Jony Sosa MD (07/28/2019 2:29 AM) [id number]
[2019-07-28 02:33] LABS: AMPHETAMINE/METHAMPHETAMINE NEG (NEG)
[2019-07-28] MEDS ORDERED: LEVO500T59 PO (03:19)
[2019-07-28 03:26] LABS: AMORPHOUS SEDIMENT,UR PRESENT /HPF; BACTERIA,URINE MOD /HPF (0-FEW); BILIRUBIN,URINE NEG (NEG); CLARITY,URINE CLOUDY; COLOR,URINE YELLOW; GLUCOSE,URINE NEG (NEG); NITRITE,URINE NEG (NEG); RBC,URINE >40 /HPF (0-2); SQUAMOUS EPITHELIAL CELL,UR OCC /LPF; UROBILINOGEN,URINE 0.2 mg/dL (0.2 mg/dL)
[2019-07-28 03:27] LABS: GRANULAR CASTS,URINE OCC /HPF
[2019-07-28] MEDS ORDERED: levoFLOXacin 500 MG TABLET PO ONE (03:30)
--- NOTE | 2019-07-28 03:53 | EKG ---
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
[2019-07-28 07:00] VITALS: BP 115/66
== END 2019-07-28 07:45 | disposition short-term general hospital (02) ==
LOC: ER 19:42
DX: R33.9 Retention of urine, unspecified (principal); N13.30 Unspecified hydronephrosis; N13.4 Hydroureter; D64.9 Anemia, unspecified; E87.5 Hyperkalemia; F41.8 Other specified anxiety disorders; R79.89 Other specified abnormal findings of blood chemistry; I25.10 Atherosclerotic heart disease of native coronary artery without angina pectoris; E11.9 Type 2 diabetes mellitus without complications; E78.5 Hyperlipidemia, unspecified; I10 Essential (primary) hypertension; E03.9 Hypothyroidism, unspecified; Z87.891 Personal history of nicotine dependence; Z88.8 Allergy status to other drugs, medicaments and biological substances
CPT/HCPCS: 36415; 74022; 74176; 80048; 80076; 80307; 81001; 82550; 83690; 83880; 84484; 85025; 85610; 85730; 87086; 93005; 96374; 96375; 99285; J2405; J3490; J7120; Q9966; J7030

== ENCOUNTER → 2021-03-01 | Outpatient (CLI) | payer MEDICARE ==
[~2021-03-01] MED LIST changes: +AMLO-187 PO; -AMLO10TA8 PO; -LISI-338 PO; +LISI-517 PO; -LISI2.5T PO; +LISI2.5T12 PO
--- NOTE | 2021-03-01 14:55 | RAD ---
Renal ultrasound 03/01/2021 INDICATION: Urinary retention COMPARISON STUDY: CT the abdomen and pelvis without contrast July 28, 2019 Discussion: Ultrasound evaluation of the kidneys was performed. Static images are submitted to PACS. Right kidney is unremarkable in appearance measuring 10.7 x 4.3 x 4.1 cm. The left kidney is atrophic in appearance measuring 7.3 x 3.4 x 3.6 cm. No hydronephrosis or nephrolithiasis is seen involving e ither kidney. The bladder is decompressed with a catheter in place, limiting evaluation. IMPRESSION: 1. Left renal atrophy. Otherwise unremarkable appearance of the kidneys. 2. Decompressed bladder with catheter placement. Electronically signed by: Skyler Wright MD (03/01/2021 2:53 PM) [id number]
== END ==
LOC: US 09:40
PROVIDERS: ATTEND Urology
DX: N26.1 Atrophy of kidney (terminal) (principal)
CPT/HCPCS: 76770